=== PATIENT | female | born 1990 | race Caucasian/White ===

== ENCOUNTER 2023-07-13 13:08 | Outpatient (CLI) | payer SELFPAY ==
[2023-07-13] VITALS (9 sets, daily range): BP systolic 122–142; BP diastolic 64–92; PULSE 71–93; TEMP 36.3; O2SAT 98–100; BMI 40.8
--- OUTSIDE RECORDS SUMMARY | 2023-07-13 13:17 | XMS RPT_ITS | CCD ---
Author Name Unknown Address [address] [place] [address] Organization [facility] Care Team Providers Care Specimen Processor Name Role Phone ROBERTA YU MD Attending Unavailable ROBERTA YU MD Primary Care Unavailable ROBERTA YU MD Admitting Unavailable DR KATHY OTERO MD Primary Care Physician BRANDEN FUENTES., DR. KATHY Joseph Primary Care UnavailDEWEY Forde Attending Unavailable Petrilla DO, Deng F Primary Care Provider Petrilla DO, Deng F Primary Care Provider CAROLINE TROTTER Referring Unavailable PETRILLA, DENG Primary Care Unavailable PETRILLA, DENG Attending Unavailable PETRILLA, DENG Referring Unavailable PETRILLA, DENG Primary Care Unavailable PETRILLA, DENG Attending Unavailable PETRILLA, DENG Primary Care Unavailable PETRILLA, DENG Primary Care Unavailable CAROLINE TROTTER Attending Unavailable CAROLINE TROTTER Referring Unavailable PETRILLA, DENG Primary Care Unavailable PETRILLA, DENG Attending Unavailable PETRILLA, DENG Referring Unavailable PETRILLA, DENG Primary Care Unavailable Kathy Otero MD Primary Care Provider HUANG BEARD Attending Unavailable GANTA, KATHY Primary Care Unavailable GANTA, KATHY Primary Care Unavailable HUANG BEARD Referring Unavailable HUANG BEARD Attending Unavailable GANTA, KATHY Primary Care Unavailable GANTA, KATHY Primary Care Unavailable GANTA, KATHY Primary Care Unavailable YANA DUARTE Attending Unavailable GANTA, KATHY Primary Care Unavailable HUANG BEARD Referring Unavailable GANTA, KATHY Primary Care Unavailable OPAL DEY Referring Unavailable HUANG BEARD Attending Unavailable [facility] KATHY Primary Care Unavailable [facility] KATHY [facility] Unavailable OPAL EDY Attending Unavailable Allergies Allergy Classification Reported Allergen(s) Allergy Type Date of Onset Reaction(s) Facility (11 sources) Penicillins Drug Intolerance 2 Other [facility] (5 sources) Bee pollen; Translations: [BEE POLLEN] Drug Allergy 3 Swelling [facility] Work Phone: Medications Current Medications Medication Drug Class(es) Dates Sig (Normalized) Sig (Original) acetaminophen 325 mg / HYDROcodone bitartrate 5 mg oral tablet (1 source) Opioid Agonist Start: 07-23-2022 End: 07-26-2022 take 1 tablet by mouth every six hours as needed for pain [place] 325- 5 mg oral tablet Dose = 1 tab(s), Oral, q6h, PRN as needed for pain, X 3 day(s), # 12 tab(s), 0 Refill(s), Dentalgia, 100 Start Date: 07/23/22 Stop Date: 07/26/22 Status: Ordered clindamycin 150 mg oral capsule (1 source) Lincosamide Antibacterial Start: 07-23-2022 End: 08-02-2022 clindamycin 150 mg oral capsule Dose : 450 mg = 3 cap(s), Oral, TID, X 10 day(s), # 90 cap(s), 0 Refill(s), 08/02/22 13:50:00 EST, 100 Start Date: 07/23/22 Stop Date: 08/02/22 Status: Ordered ibuprofen 800 mg oral tablet (5 sources) Nonsteroidal Anti-inflammatory Drug Start: 11-08-2022 End: 11-15-2022 take 1 tablet by mouth three times daily ibuprofen 800 MG tablet Take 1 tablet (800 mg) by mouth 3 times daily for 7 days. 21 tablet 0 11/08/2022 11/15/2022 Active Magnesium Chloride (1 source) Start: 02-01-2016 magnesium chloride Start Date: 02/01/16 Status: Ordered omeprazole 20 mg oral tablet (3 sources) Proton Pump Inhibitor Start: 02-01-2016 take 1 dose by mouth once daily PriLOSEC OTC Dose : 20 mg =, Oral, qDay Start Date: 02/01/16 Status: Ordered Completed/Discontinued Medications Medication Drug Class(es) Dates Sig (Normalized) Sig (Original) aspirin 81 mg delayed release oral tablet (4 sources) Platelet Aggregation Inhibitor, Nonsteroidal Anti-inflammatory Drug Start: 04-29-2023 End: 04-29-2023 take 2 tablets by mouth once daily aspirin, enteric coated (ECOTRIN LOW STRENGTH) 81 mg EC tablet Take 2 tablets by mouth once daily. 60 tablet 5 04/29/2023 Active Problems Active Problems Problem Classification Problem Date Documented Date Episodic/Chronic Abdominal pain (3 sources) Right lower quadrant pain; Translations: [Right lower quadrant pain] Onset: 3 Episodic Conditions associated with dizziness or vertigo (6 sources) Dizziness; Translations: [Dizziness and giddiness] Onset: 3 Episodic Disorders of lipid metabolism (1 source) Hypercholesterolemia 02-01-2016 Chronic Disorders of teeth and jaw (1 source) Disorder of teeth AND/OR supporting structures; Translations: [Other specified disorders of teeth and supporting structures] Onset: 3 Episodic Esophageal disorders (1 source) Gastroesophageal reflux disease 02-01-2016 Chronic Immunizations and screening for infectious disease (3 sources) Patient encounter status; Translations: [Encounter for screening for human papillomavirus (HPV)] Onset: 3 04-29-2023 Episodic Menstrual disorders (4 sources) Primary oligomenorrhea; Translations: [Primary oligomenorrhea] Onset: 6 11-09-2015 Chronic Other complications of (6 sources) Obesity; Translations: [Obesity complicating , unspecified trimester] Onset: 3 04-18-2023 Chronic Other complications of (1 source) Obesity complicating , unspecified trimester; Translations: [Obesity in ] Onset: 3 Chronic Other complications of (7 sources) Elderly primigravida; Translations: [Supervision of elderly primigravida, unspecified trimester] Onset: 3 04-18-2023 Episodic Other complications of (1 source) with inconclusive viability, not applicable or unspecified; Translations: [ with inconclusive viability] 04-29-2023 Episodic Other complications of (1 source) Supervision of elderly primigravida, unspecified trimester; Translations: [Advanced maternal age, primigravida, antepartum] Onset: 3 Episodic Other endocrine disorders (1 source) Polycystic ovaries 02-01-2016 Chronic Other endocrine disorders (4 sources) Polycystic ovary syndrome; Translations: [Polycystic ovarian syndrome] Onset: 6 11-16-2015 Chronic Other nervous system disorders (6 sources) H/O: epilepsy; Translations: [Personal history of other diseases of the nervous system and sense organs] Onset: 3 04-18-2023 Episodic Other nervous system disorders (1 source) Personal history of other diseases of the nervous system and sense organs; Translations: [History of epilepsy] Onset: 3 Episodic Other and delivery including normal (4 sources) with uncertain dates; Translations: [Encounter for supervision of normal , unspecified, first trimester] Onset: 3 04-29-2023 Episodic Other screening for suspected conditions (not mental disorders or infectious disease) (1 source) Encounter for screening for malignant neoplasm of cervix; Translations: [Encounter for screening for malignant neoplasm of cervix] Onset: 3 Episodic Residual codes; unclassified (10 sources) History of clinical finding in subject; Translations: [Personal history of other specified conditions] Onset: 3 Episodic Residual codes; unclassified (2 sources) Personal history of other specified conditions; Translations: [Personal history of other specified conditions] Onset: 3 Episodic Residual codes; unclassified (1 source) 15 weeks gestation of ; Translations: [15 weeks gestation of ] Onset: 3 Episodic Screening and history of mental health and substance abuse codes (7 sources) H/O: depression; Translations: [Personal history of other mental and behavioral disorders] Onset: 3 04-18-2023 Episodic Past or Other Problems Problem Classification Problem Date Documented Da te Episodic/Chronic Diabetes mellitus without complication (8 sources) Impaired fasting glycemia; Translations: [Impaired fasting glucose] Onset: 11-16-2015 11-16-2015 Episodic Skin and subcutaneous tissue infections (4 sources) Abscess; Translations: [Cutaneous abscess, unspecified] Onset: 08-05-2015 08-05-2015 Episodic Results Test Name Value Interpretation Reference Range Facil ity Vital Signs Date Time Vital Sign Value Performing Clinician Facility 04-29-2023 10:12-0400 Body height 165.1 cm Huang Beard MD Work Phone: [facility] 04-29-2023 10:12-0400 Body weight 107.5 kg Huang Beard MD Work Phone: [facility] 04-29-2023 10:12-0400 Diastolic blood pressure 84 mm[Hg] Huang Beard MD Work Phone: [facility] 04-29-2023 10:12-0400 Systolic blood pressure 128 mm[Hg] Huang Beard MD Work Phone: [facility] 11-12-2022 08:46-0400 Body height 165.1 cm Deng Brady DO Work Phone: [facility] 11-12-2022 08:46-0400 Body mass index (BMI) [Ratio] 38.94 kg/m2 Deng Brady DO Work Phone: [facility] 11-12-2022 08:46-0400 Body temperature 96.8 [degF] Deng Brady DO Work Phone: [facility] 11-12-2022 08:46-0400 Body weight 106.14 kg Deng Brady DO Work Phone: [facility] 11-12-2022 08:46-0400 Diastolic blood pressure 86 mm[Hg] Deng Brady DO Work Phone: [facility] 11-12-2022 08:46-0400 Heart rate 88 /min Deng Brady DO Work Phone: [facility] 11-12-2022 08:46-0400 SaO2% (BldA) [Mass fraction] 98 % Deng Brady DO Work Phone: [facility] 11-12-2022 08:46-0400 Systolic blood pressure 122 mm[Hg] Deng Cabrala DO Work Phone: [facility] 11-08-2022 15:18-0400 Diastolic blood pressure 82 mm[Hg] Caroline Trotter MD Work Phone: [facility] 11-08-2022 15:18-0400 Heart rate 63 /min Caroline Trotter MD Work Phone: [facility] 11-08-2022 15:18-0400 Respiratory rate 14 /min Caroline Trotter MD Work Phone: [facility] 11-08-2022 15:18-0400 SaO2% (BldA) [Mass fraction] 99 % Caroline Trotter MD Work Phone: [facility] 11-08-2022 15:18-0400 Systolic blood pressure 122 mm[Hg] Caroline Trotter MD Work Phone: [facility] 11-08-2022 11:33-0400 Body height 162.6 cm Caroline Trotter MD Work Phone: [facility] 11-08-2022 11:33-0400 Body mass index (BMI) [Ratio] 37.76 kg/m2 Caroline Trotter MD Work Phone: [facility] 11-08-2022 11:33-0400 Body temperature 97.5 [degF] Caroline Trotter MD Work Phone: [facility] 11-08-2022 11:33-0400 Body weight 99.79 kg Caroline Trotter MD Work Phone: [facility] 07-23-2022 13:34-0500 Body temperature 98.96 [degF] DEWEY LEAVITT DO [facility] 07-23-2022 13:34-0500 Body weight 100 kg DEWEY LEAVITT DO [facility] 07-23-2022 13:34-0500 Diastolic Blood Pressure Non-Invasive 83 1 DEWEY LEAVITT DO [facility] 07-23-2022 13:34-0500 Heart rate 117 /min DEWEY LEAVITT DO [facility] 07-23-2022 13:34-0500 Respiratory rate 20 /min DEWEY LEAVITT DO [facility] 07-23-2022 13:34-0500 Systolic Blood Pressure Non-Invasive 126 1 DEWEY LEAVITT DO [facility] Encounters Encounter Date Encounter Type Care Provider Facility Start: 06-19-2023 End: 06-19-2023 ambulatory [facility] Facility:[facility] Start: 06-10-2023 End: 06-11-2023 ambulatory [facility] Facility:[facility] Start: 05-30-2023 End: 05-30-2023 ambulatory HUANG BEARD Facility:[facility] Start: 05-20-2023 End: 05-20-2023 ambulatory [facility] Facility:[facility] Start: 04-29-2023 End: 04-29-2023 ambulatory HUANG BEARD Facility:[facility] Start: 04-29-2023 End: 04-29-2023 Patient encounter procedure Huang Beard MD Work Phone: OB/Gynecology Procedures Date Procedure Procedure Detail Performing Clinician Start: 04-29-2023 Antibody screen HUANG BEARD Plan of Treatment Date Care Activity Detail Author Start: 2038 Zoster Vaccines (1 of 2) Zoste r Vaccines (1 of 2) [facility] Start: 08-10-2031 DTaP/Tdap/Td Vaccine s (2 - Td or Tdap) DTaP/Tdap/Td Vaccines (2 - Td or Tdap) [facility] Start: 08-10-2031 Urine microalbumin profile DTaP,Tdap,Td Vaccine (2 - Td or Tdap) [facility] Start: 12-26-2026 Lipid panel Lipid Panel [facility] Start: 04-29-2023 End: 07-29-2023 CARRIER SCREEN, STANDARD [facility] Work Phone: Immunizations Immunization Date Immunization Notes Care Provider Fa cility 08-10-2021 tetanus toxoid, redu kwabena diphtheria toxoid, and acellular pertussis vaccine, adsorbed Deng Brady DO Work Phone: [facility] 04-20-2016 influenza virus vacc ine, unspecified formulation Nurse Wstr Work Phone: [facility] Payers Date Payer Category Payer Private Health Insurance [id number] 2021 Private Health Insurance [id number] 1988 Unknown [id number] Social History Date Type Detail Facility Start: 04-18-2023 Tobacco smoking status Ex-smoker (finding) [facility] Sex Assigned At Sex [facility] Start: 12-25-2008 Tobacco smoking status NCIS Smokes tobacco daily [facility] Start: 12-25-2008 History of tobacco use Cigarette Smoker [facility] Start: 11-08-2022 End: 04-18-2023 Cigarettes smoked current (pack per day) - Reported 0.3 [facility] Start: 11-08-2022 End: 04-18-2023 Tobacco use and exposure Smokeless tobacco non-user [facility] Start: 11-08-2022 End: 04-29-2023 Alcohol intake Ex-drinker (finding) [facility] Start: 11-08-2022 History SDOH Alcohol Frequency 2 [facility] Start: 11-08-2022 History SDOH Alcohol Std Drinks 1 [facility] Start: 1990 Sex Assigned At Not on file [facility] Start: 10-29-2022 End: 12-05-2022 Exposure to SARS-CoV-2 (event) Not sure [facility] Start: 11-08-2022 End: 04-18-2023 Alcohol Use Disorder Identification Test - Consumption [AUDIT-C] [facility] How often to you hav e a drink containing alcohol? Monthly or less [facility] How many standard dr inks containing alcohol do you have on a typical day? 1 or 2 [facility] How often do you hav e 6 or more drinks on 1 occasion? Never [facility] Start: 11-09-2022 Gender identity Identifies as female gender (finding) [facility] History of tobacco use Current smoker [facility] Work Phone: National Score (1-10 0), lower number is lower risk 86 [facility] Start: 04-18-2023 Education 13 [facility] Start: 07-20-2015 Alcohol Comment Occasional [facility] Start: 02-16-2023 [facility] Goals Date Patient Goal Desired Activity /State Personal health goal Functional Status Date Assessment Result Facility 07-23-2022 Functional Status Standard Safet y ID band on, Call device within reach, Bed in low position, Wheels locked, Upper/Half-Length side-rails up, Bedside Cart Locked, Safety level maintained [facility] Mental Status Date Assessment Result Facility 07-23-2022 Mental Status Orientation Oriented x 4 [facility] Clinical Notes 05-10-2022 to 05-30-2023 Addendum Note - Huang Beard MD - 04/29/2023 5:02 PM EDTTelephone Encounter - Huang Beard MD - 04/29/2023 1:15 PM EDTTelephone Encounter - Jennifer Sears - 04/29/2023 11:01 AM EDT Note Date & Type Note Facility 05-30-2023 Note HNO ID: [id number] Author: Huang Beard MD Service: ? Author Type: Physician Type: Progress Notes Filed: 05/30/2023 8:55 AM Note Text: Sergio is a 33 year old who presents today for a colposcopy. The patient's last pap smear was ascus from March 2023. Patient has a history of abnormal pap: Yes. The patient has had prior treatment: LEEP. test: n/a UNIVERSAL PROTOCOL / SAFETY CHECKLIST Procedure to be Performed: colp w/ possible biopsies Sign In: A Moment of CARE was completed. Personnel directly involved with the procedure wore the appropriate PPE (Personal Protective Equipment). Patient/Surrogate Stated/Verified: PATIENT VERIFIED(optional for EMERGENT procedures): Patient name, Date of , Relevant allergies, and The intended procedure Time Out Communication: Intended patient and procedure match the source documents. Consent documented and matches the intended procedure. No implant(s) inserted. Sign Out: SIGN OUT (optional for EMERGENT procedures): No specimen collected. All instruments, equipment, possible retained foreign bodies accounted for. Post-procedure follow-up management communicated and Plan of Care Visit completed when applicable. Huang Beard M.D. PROCEDURE: EXTERNAL GENITALIA: Normal in appearance without lesions VAGINA: Normal in appearance without lesions CERVIX: Speculum placed in vagina and excellent visualization of cervix achieved. Cervix swabbed x 3 with 3% acetic acid solution. Cervix grossly normal. Squamocolumnar junction visualized. No acetowhite changes, punctations, mosaicism or atypical vasculature noted. BIOPSY: Not done. ECC: not done Procedure Summary: Patient tolerated procedure well and colposcopy was adequate. ASSESSMENT: ascus pap PLAN: Post-procedure instructions reviewed and written material given to the patient. f/u for routine screening after FHTs 156 Huang Beard MD [facility] 04-29-2023 Miscellaneous Notes Addended by: HUANG BEARD on: 04/29/2023 05:02 PM Modules accepted: Orders documented in this encounter [facility] 04-29-2023 Miscellaneous Notes done. Thanks. Huang Beard MD Please attach order for anatomy follow up visit. Thank you! Jennifer Sears documented in this encounter [facility] 04-29-2023 Note HNO ID: [id number] Author: Huang Beard MD Service: ? Author Type: Physician Type: Progress Notes Filed: 04/29/2023 10:36 AM Note Text: OB point of care ultrasound was performed. See imaging tab for details. Huang Beard MD INITIAL OB ASSESSMENT OB Provider: Huang Beard MD HPI: Sergio is a 32 year old White here to establish Obstetrical Care. Patient's last menstrual period was 02/02/2023 (exact date). from OB Dating Form. Cycles irregular was not preventing but had issues with infertility in pat Complaints: None OB History T0 L0 SAB0 IAB0 Ectopic0 Multiple0 Live Births0 Patient's Risk Screening for delivery: Have you had a prior prasad between 20w and 36w6d?: No MEDICAL/PSYCHOSOCIAL HISTORY: History of hemorrhage or bleeding concerns: No Thyroid Disease: No History of chronic hypertension: No History of pre-existing diabetes: No No results found for: ABORHD No weight on file for this encounter. History of abnormal pap: Yes Prior treatment for cervical dysplasia: no. History of STDs: chlamydia and PID Tobacco use: Yes-vapes Caffeine use: Yes 1 cup of coffee a day Drug use: No Alcohol use: No Multivitamin with Folic acid: Yes Lutheran or heritage: Noc Would refuse blood transfusion if medically necessary: No Are you currently employed? 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 I don't have enough money to pay my bills: Never Within the past 12 months, have you worried that your food would run out before you had money to buy more: Never In the past 12 months, has lack of reliable transportation kept you from going to medical appointments or work, or from keeping things needed for daily living: Never In the past 12 months, have you had any concerns about having a place to live, or about the condition or quality of your housing: Never Are there any cultural or spiritual needs we should be aware of: No Depression/Anxiety Screening: denies symptoms of depression. OB Depression and Anxiety Screening- This Encounter (since 04/17/2023) Over the past 2 weeks have you felt down, depressed, or hopeless? Negative Over the past two weeks, have you felt little interest or pleasure in doing things?? Negative Feeling nervous, anxious or on edge 0-Not at all Not being able to stop or control worrying 0-Not al all Anxiety Pre-Screening Total (If >/= 3 additional questions will be reviewed) 0 Genetic Screening: Partner present: No Patient verbalized knowledge of partner family health history: Yes Do you or your partner have any personal or family history of defects not previously discussed: No Do you have history of a complicated by anomaly, genetic condition, or demise: No ACOG Recommended Screening Screening for early gestational diabetes testing: Criteria for early testing requires elevated BMI plus one other risk factor: No weight on file for this encounter. (risk factor if > than 25 or 23 in Americans) Additional risk factors: First-degree relative with diabetes-sister3 She does meet ACOG criteria for early gestational DM screening. 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[employer] Gender: Male History of STDs: None PAST MEDICAL HISTORY PAST MEDICAL HISTORY Diagnosis Date Abnormal Pap smear of cervix > 10 years ago as of 2022 +HPV Bipolar affective (HCC) Chlamydia 2014 Depression/anxiety Epilepsy (HCC) Dx when she was 1, no longer takes medication hasn't had a seizure since she was 8 Infertility, female PCOS (polycystic ovarian syndrome) PID (acute pelvic inflammatory disease) 2014 Hospitalized at [facility] PTSD (post-traumatic stress disorder) Syphilis PAST SURGICAL HISTORY PAST SURGICAL HISTORY Procedure Laterality Date PAST SURGICAL HISTORY OF Right 0182-2022 3 armpit surgeries to remove fatty tissue PAST SURGICAL HISTORY OF Left 07/01/1989 left eye-lazy eye PAST SURGICAL HISTORY OF cysts removed from head VAGINOSCOPY CURRENT MEDICATIONS Current Outpatient Medications Medication Sig Dispense Refill VIT CALC,IRON,FOLIC ( #2 ORAL) Take by mouth (more content not included)... [facility] 04-29-2023 History of Present illness Narrative Images from the original note were not included. OB point of care ultrasound was performed. See imaging tab for details. Huang Beard MD INITIAL OB ASSESSMENT OB Provider: Huang Beard MD HPI: Sergio is a 32 year old White here to establish Obstetrical Care. Patient's last menstrual period was 02/02/2023 (exact date). from OB Dating Form. Cycles irregular was not preventing but had issues with infertility in pat Complaints: None OB History T0 L0 SAB0 IAB0 Ectopic0 Multiple0 Live Births0 Patient's Risk Screening for delivery: Have you had a prior prasad between 20w and 36w6d?: No MEDICAL/PSYCHOSOCIAL HISTORY: History of hemorrhage or bleeding concerns: No Thyroid Disease: No History of chronic hypertension: No History of pre-existing diabetes: No No results found for: ABORHD No weight on file for this encounter. History of abnormal pap: Yes Prior treatment for cervical dysplasia: no. History of STDs: chlamydia and PID Tobacco use: Yes-vapes Caffeine use: Yes 1 cup of coffee a day Drug use: No Alcohol use: No Multivitamin with Folic acid: Yes Lutheran or heritage: Noc Would refuse blood transfusion if medically necessary: No Are you currently employed? 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 I don't have enough money to pay my bills: Never Within the past 12 months, have you worried that your food would run out before you had money to buy more: Never In the past 12 months, has lack of reliable transportation kept you from going to medical appointments or work, or from keeping things needed for daily living: Never In the past 12 months, have you had any concerns about having a place to live, or about the condition or quality of your housing: Never Are there any cultural or spiritual needs we should be aware of: No Depression/Anxiety Screening: denies symptoms of depression. OB Depression and Anxiety Screening- This Encounter (since 04/17/2023) Over the past 2 weeks have you felt down, depressed, or hopeless? Negative Over the past two weeks, have you felt little interest or pleasure in doing things? Negative Feeling nervous, anxious or on edge 0-Not at all Not being able to stop or control worrying 0-Not al all Anxiety Pre-Screening Total (If >/= 3 additional questions will be reviewed) 0 Genetic Screening: Partner present: No Patient verbalized knowledge of partner family health history: Yes Do you or your partner have any personal or family history of defects not previously discussed: No Do you have history of a complicated by anomaly, genetic condition, or demise: No ACOG Recommended Screening Screening for early gestational diabetes testing: Criteria for early testing requires elevated BMI plus one other risk factor: No weight on file for this encounter. (risk factor if > than 25 or 23 in Americans) Additional risk factors: First-degree relative with diabetes-sister3 She does meet ACOG criteria for early gestational DM screening. 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[employer] Gender: Male History of STDs: None PAST MEDICAL HISTORY PAST MEDICAL HISTORY Diagnosis Date Abnormal Pap smear of cervix > 10 years ago as of 2022 +HPV Bipolar affective (HCC) Chlamydia 2014 Depression/anxiety Epilepsy (HCC) Dx when she was 1, no longer takes medication hasn't had a seizure since she was 8 Infertility, female PCOS (polycystic ovarian syndrome) PID (acute pelvic inflammatory disease) 2014 Hospitalized at [facility] PTSD (post-traumatic stress disorder) Syphilis PAST SURGICAL HISTORY PAST SURGICAL HISTORY Procedure Laterality Date PAST SURGICAL HISTORY OF Right [id number] 3 armpit surgeries to remove fatty tissue PAST SURGICAL HISTORY OF Left 07/01/1989 left eye-lazy eye PAST SURGICAL HISTORY OF cysts removed from head VAGINOSCOPY CURRENT MEDICATIONS Current Outpatient Medications Medication Sig Dispense Refill VIT CALC,IRON,FOLIC ( #2 ORAL) Take by mouth. medroxyPROGESTERone (PROVERA) 10 mg tablet Take 1 tablet by mouth once daily. 10 tablet 0 clomiPHENE (SEROPHENE) 50 mg tablet Take 2 tab po cycle days 3-7 10 tablet 0 mupirocin (BACTROBAN) 2 % ointment Apply 1 application to affected area twice daily. Location: nares 1 Tube 2 MAGNESIUM CARBONATE MISC (Patient not taking: Reported on 04/18/2023) omeprazole (PRILOSEC) 20 mg capsule Take 1 capsule by mouth twice daily. 60 capsule 1 Varenicline (CHANTIX STARTING MONTH BOX) 0.5 mg (11)- 1 mg (42) tablet Take 1 mg by mouth as directed. Take one 0.5mg tablet by mouth once daily for 3 days, then increase to one 0.5mg tablet twice daily for 3 days, then increase to one 1mg tablet twice daily. 1 Package 3 No current facility-administered medications for this visit. Allergies As of Date: 04/18/2023 Allergen Noted Reaction BEE POLLEN 04/18/2023 Swelling Fully Assessed 04/18/2023 Does patient have penicillin allergy: No- Pt states that PCN did NOT work when treating a cyst and they marked it as an allergy. But patient has taken PCN since then -denies allergy Reviewed above and agree. REVIEW OF SYSTEMS: GENERAL: Negative for: Fever or Chills HEENT: Negative for: Headache, Impaired Vision, Ringing in Ears, Nosebleeds NECK: Negative for: Swelling, Pain, Stiffness RESPIRATORY: Negative for: Cough, Shortness of breath, Wheezing GASTROINTESTINAL: Negative for: Heartburn, Constipation, Diarrhea, Blood in stool, Vomiting MUSCULOSKELETAL: Negative for: Muscle or joint pain, stiffness, Joint swelling NEUROLOGIC/PSYCHIATRIC: Negative for: Weakness, Paralysis, Numbness, Tingling, Tremor, Memory loss + anxiety and depression SKIN: Negative for: Rash, Itching GENITOURINARY: Negative for: vaginal itching, vaginal discharge, hematuria or dysuria PHYSICAL EXAM: BP 128/84 Ht 5' 5 (1.65m) Wt 237 lb (107.5kg) LMP 02/02/2023 BMI 39.44 kg/(m^2). GENERAL: pleasant in no apparent distress DERMATOLOGY: Normal, without lesions, non-icteric, and non-hirsute NECK: Supple, full range of motion, no adenopathy, and thyroid normal CHEST: Normal inspiratory effort BREAST: soft, non-tender, symmetric, no dominant mass, normal nipple-areolar complex, no lymphadenopathy, and no nipple discharge ABDOMEN: soft, non-tender, and no masses NEURO: alert and oriented x3,exam grossly non-focal PELVIS: External genitalia normal without lesions. Perineal body intact. No vaginal or cervical lesions. Cervix closed. Uterus 13 week size. No adnexal masses or tenderness. Clinical Pelvimetry: Pelvimetry clinically assessed as adequate Limited OB ultrasound exam: single intrauterine and positive cardiac activity OB Risk Screening: Completed, positive findings include: Patient will be less than 17 or greater than 34 at the time of Delivery SBIRT Sergio Akbar was given the 4P's screening tool. Sergio answered as follows: OB Opioid Screening - Last Recorded (since 08/02/2022) Did any of your parents have a problem with alcohol or other drug use? Yes Father-ETOH Does your partner have a problem with alcohol or other drug use? No In the past, have you had difficulties in your life because of alcohol or other drugs, including prescription medications? No In the past month have you drunk any alcohol or used other drugs? No Based on the screen and further questions, she is considered at Low risk due to:No past or current use. Positive reinforcement of current behavior. Huang Beard MD ASSESSMENT: 32 year old at 12w2d wks gestational age PLAN: 1) Patient oriented to practice. Patient given new OB orientation folder. Discussed nutrition, folic acid supplementation, dietary guidelines, exercise, smoking, alcohol, caffeine, and drug use. Discussed gestational weight gain guidelines. Discussed routine OB labs including STD/HIV. Discussed how to access Your guide to a health and the Feed In Worker. Discussed aneuploidy and carrier screening. Regarding aneuploidy screening, nuchal translucency/first trimester early anatomy ultrasound and NIPT were discussed. Regarding carrier screening, the myriad screen was discussed. The risks/benefits and limitations of NIPT/aneuploidy screening were reviewed including the potential for false negative and false positive results. We discussed the availability of professional-society guided carrier screening and reviewed the conditions screened and limitations of screening. The availability of genetic counseling was reviewed. Information on aneuploidy/carrier screening was provided. The patient chooses: Aneuploidy screening: chooses to proceed with NIPT (10 weeks) and Carrier screening: Accepts Discussed hemoglobin electrophoresis. Patient: Accepts Patient offered option of Virtual Visits. Patient unsure. May consider in future. 2) AMA: Aneuploidy screening reviewed 3) ASA candiodate tob cessation reviewed, now vaping, cutting back hgba1c for DM screening h/o bipolar- referal to counseling center to reestablish Medical Decision Making: Problems: Moderate: New problem with uncertain prognosis Data: Unique test(s) ordered: 3+ Risk: Moderate: Drug management Medical Decision Making Level: 4 - Moderate Follow up in 4 weeks or sooner prn. Huang Beard MD documented in this encounter [facility] 04-29-2023 Instructions Antionette Jack Ma - 04/29/2023 10:06 AM EDT Please select the following link to access the [facility] Your Guide to a Healthy . [email or web address] documented in this encounter [facility] 04-18-2023 Miscellaneous Notes DISTANCE HEALTH VISIT This Team Access Model visit is a phone encounter. It required patient-provider interaction for the medical decision making as documented below. I have communicated my name and active licensure. The patient's identity and physical location were verified at the time of this visit. Patient will be 33 years old on May 17. Advanced maternal age discussed. Noninvasive and invasive testing options discussed. Patient desires nuchal ultrasound and maternity 21 test. Contact information for [facility] given to patient to check on insurance coverage. Patient is obese. We will plan on early hemoglobin A1c.Pt has a history of anxiety/depression diagnosed in 2011. She states she was diagnosed with bipolar disorder in 2015 and PTSD in 2021. Patient states she was most recently treated by Dr. Forman in [place]. Has been to a counselor in the past and has access to counseling through her employment. She has been off medication for 1 year. She believes she is doing well off medication. Discussed increased risks of depression during and and importance of reporting the development or worsening of symptoms should they occur. Patient states she did have a suicidal attempt in 2006 when she consumed a bottle of Tylenol. She had a psychiatric hospitalization for 1 week at [facility] following that. She denies any suicidal thoughts for the past 10 years. Patient states she has a history of epilepsy that was diagnosed at age 1. She has been off medication since age 14. She states she has had no seizures since age 8. Patient considering genetic carrier screening testing. Contact information for [employer] given to patient to check on insurance coverage.Clare Velasquez RN documented in this encounter [facility] 04-18-2023 Note HNO ID: [id number] Author: Clare Velasquez RN Service: ? Author Type: ? Type: Progress Notes Filed: 04/18/2023 12:29 PM Note Text: INITIAL OB ASSESSMENT OB Provider: Clare Velasquez RN HPI: Sergio is a 32 year old White here to establish Obstetrical Care. Patient's last menstrual period was 02/02/2023 (exact date). from OB Dating Form. Cycles irregular was not preventing but had issues with infertility in pat Complaints: None OB History T0 L0 SAB0 IAB0 Ectopic0 Multiple0 Live Births0 Patient's Risk Screening for delivery: Have you had a prior prasad between 20w and 36w6d?: No MEDICAL/PSYCHOSOCIAL HISTORY: History of hemorrhage or bleeding concerns: No Thyroid Disease: No History of chronic hypertension: No History of pre-existing diabetes: No No results found for: ABORHD No weight on file for this encounter. History of abnormal pap: Yes Prior treatment for cervical dysplasia: no. History of STDs: chlamydia and PID Tobacco use: Yes-vapes Caffeine use: Yes 1 cup of coffee a day Drug use: No Alcohol use: No Multivitamin with Folic acid: Yes Lutheran or heritage: Noc Would refuse blood transfusion if medically necessary: No Are you currently employed? 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 I don't have enough money to pay my bills: Never Within the past 12 months, have you worried that your food would run out before you had money to buy more: Never In the past 12 months, has lack of reliable transportation kept you from going to medical appointments or work, or from keeping things needed for daily living: Never In the past 12 months, have you had any concerns about having a place to live, or about the condition or quality of your housing: Never Are there any cultural or spiritual needs we should be aware of: No Depression/Anxiety Screening: denies symptoms of depression. OB Depression and Anxiety Screening- This Encounter (since 04/17/2023) Over the past 2 weeks have you felt down, depressed, or hopeless? Negative Over the past two weeks, have you felt little interest or pleasure in doing things?? Negative Feeling nervous, anxious or on edge 0-Not at all Not being able to stop or control worrying 0-Not al all Anxiety Pre-Screening Total (If >/= 3 additional questions will be reviewed) 0 Genetic Screening: Partner present: No Patient verbalized knowledge of partner family health history: Yes Do you or your partner have any personal or family history of defects not previously discussed: No Do you have history of a complicated by anomaly, genetic condition, or demise: No ACOG Recommended Screening Screening for early gestational diabetes testing: Criteria for early testing requires elevated BMI plus one other risk factor: No weight on file for this encounter. (risk factor if > than 25 or 23 in Americans) Additional risk factors: First-degree relative with diabetes-sister3 She does meet ACOG criteria for early gestational DM screening. Screening for low dose aspirin use for the prevention of pre-eclampsia: Low dose aspirin should be considered if the patient has one high or two moderate risk factors: High risk factors: None Moderate risk ractors: Nulliparity, Obesity (body mass index greater than 30), and Age 35 years or older She does meet criteria for low dose ASA Marital Status: Partner: Alexandre Akbar Name: Alexandre Akbar Age: 28 Occupation: Pediatric [employer] Gender: Male History of STDs: None PAST MEDICAL HISTORY Diagnosis Date Abnormal Pap smear of cervix > 10 years ago as of 2022 +HPV Bipolar affective (HCC) Chlamydia 2014 Depression/anxiety Epilepsy (HCC) Dx when she was 1, no longer takes medication hasn't had a seizure since she was 8 Infertility, female PCOS (polycystic ovarian syndrome) PID (acute pelvic inflammatory disease) 2014 Hospitalized at [facility] PTSD (post-traumatic stress disorder) Syphilis PAST SURGICAL HISTORY Procedure Laterality Date PAST SURGICAL HISTORY OF Right [id number] 3 armpit surgeries to remove fatty tissue PAST SURGICAL HISTORY OF Left 07/01/1989 left eye-lazy eye PAST SURGICAL HISTORY OF cysts removed from head VAGINOSCOPY Current Outpatient Medications Medication Sig Dispense Refill VIT CALC,IRON,FOLIC ( #2 ORAL) Take by mouth. medroxyPROGESTERone (PROVERA) 10 mg tablet Take 1 tablet by mouth once daily. 10 tablet 0 clomiPHENE (SEROPHENE) 50 mg tablet Take 2 tab po cycle days 3-7 10 tablet 0 mupiroci (more content not included)... [facility] 04-18-2023 History of Present illness Narrative INITIAL OB ASSESSMENT OB Provider: Clare Velasquez RN HPI: Sergio is a 32 year old White here to establish Obstetrical Care. Patient's last menstrual period was 02/02/2023 (exact date). from OB Dating Form. Cycles irregular was not preventing but had issues with infertility in pat Complaints: None OB History T0 L0 SAB0 IAB0 Ectopic0 Multiple0 Live Births0 Patient's Risk Screening for delivery: Have you had a prior prasad between 20w and 36w6d?: No MEDICAL/PSYCHOSOCIAL HISTORY: History of hemorrhage or bleeding concerns: No Thyroid Disease: No History of chronic hypertension: No History of pre-existing diabetes: No No results found for: ABORHD No weight on file for this encounter. History of abnormal pap: Yes Prior treatment for cervical dysplasia: no. History of STDs: chlamydia and PID Tobacco use: Yes-vapes Caffeine use: Yes 1 cup of coffee a day Drug use: No Alcohol use: No Multivitamin with Folic acid: Yes Lutheran or heritage: Noc Would refuse blood transfusion if medically necessary: No Are you currently employed? 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 I don't have enough money to pay my bills: Never Within the past 12 months, have you worried that your food would run out before you had money to buy more: Never In the past 12 months, has lack of reliable transportation kept you from going to medical appointments or work, or from keeping things needed for daily living: Never In the past 12 months, have you had any concerns about having a place to live, or about the condition or quality of your housing: Never Are there any cultural or spiritual needs we should be aware of: No Depression/Anxiety Screening: denies symptoms of depression. OB Depression and Anxiety Screening- This Encounter (since 04/17/2023) Over the past 2 weeks have you felt down, depressed, or hopeless? Negative Over the past two weeks, have you felt little interest or pleasure in doing things? Negative Feeling nervous, anxious or on edge 0-Not at all Not being able to stop or control worrying 0-Not al all Anxiety Pre-Screening Total (If >/= 3 additional questions will be reviewed) 0 Genetic Screening: Partner present: No Patient verbalized knowledge of partner family health history: Yes Do you or your partner have any personal or family history of defects not previously discussed: No Do you have history of a complicated by anomaly, genetic condition, or demise: No ACOG Recommended Screening Screening for early gestational diabetes testing: Criteria for early testing requires elevated BMI plus one other risk factor: No weight on file for this encounter. (risk factor if > than 25 or 23 in Americans) Additional risk factors: First-degree relative with diabetes-sister3 She does meet ACOG criteria for early gestational DM screening. 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[employer] Gender: Male History of STDs: None PAST MEDICAL HISTORY Diagnosis Date Abnormal Pap smear of cervix > 10 years ago as of 2022 +HPV Bipolar affective (HCC) Chlamydia 2014 Depression/anxiety Epilepsy (HCC) Dx when she was 1, no longer takes medication hasn't had a seizure since she was 8 Infertility, female PCOS (polycystic ovarian syndrome) PID (acute pelvic inflammatory disease) 2014 Hospitalized at [facility] PTSD (post-traumatic stress disorder) Syphilis PAST SURGICAL HISTORY Procedure Laterality Date PAST SURGICAL HISTORY OF Right [phone] 3 armpit surgeries to remove fatty tissue PAST SURGICAL HISTORY OF Left 07/01/1989 left eye-lazy eye PAST SURGICAL HISTORY OF cysts removed from head VAGINOSCOPY Current Outpatient Medications Medication Sig Dispense Refill VIT CALC,IRON,FOLIC ( #2 ORAL) Take by mouth. medroxyPROGESTERone (PROVERA) 10 mg tablet Take 1 tablet by mouth once daily. 10 tablet 0 clomiPHENE (SEROPHENE) 50 mg tablet Take 2 tab po cycle days 3-7 10 tablet 0 mupirocin (BACTROBAN) 2 % ointment Apply 1 application to affected area twice daily. Location: nares 1 Tube 2 MAGNESIUM CARBONATE MISC (Patient not taking: Reported on 04/18/2023) omeprazole (PRILOSEC) 20 mg capsule Take 1 capsule by mouth twice daily. 60 capsule 1 Varenicline (CHANTIX STARTING MONTH BOX) 0.5 mg (11)- 1 mg (42) tablet Take 1 mg by mouth as directed. Take one 0.5mg tablet by mouth once daily for 3 days, then increase to one 0.5mg tablet twice daily for 3 days, then increase to one 1mg tablet twice daily. 1 Package 3 No current facility-administered medications for this visit. Allergies As of Date: 04/18/2023 Allergen Noted Reaction BEE POLLEN 04/18/2023 Swelling Fully Assessed 04/18/2023 Does patient have penicillin allergy: No- Pt states that PCN did NOT work when treating a cyst and they marked it as an allergy. But patient has taken PCN since then -denies allergy documented in this encounter [facility] 12-13-2022 Note Referral pended for dx and doctor's signature [facility] 12-05-2022 Note OUTPATIENT EEG/VIDEO REPORT DEMOGRAPHICS PATIENT: SERGIO AKBAR DATE OF SERVICE: December 05, 2022 DATE OF : [birth year] AGE: 32 GENDER: Female HANDEDNESS: RIGHT DICTATING PHYSICIAN: DR. Nick REFERRING PHYSICIAN: Dr. Brady EEG PARAMETER EEG TEST ?: [id number] EEG TEST TYPE: Outpatient 32-MINUTE EEG RECORDING. (7:52 AM-8:26 AM) BRIM CUTTER: TAC 21 Channel EEG using silver/silver chloride electrodes for data acquisition. EEG electrodes were positioned using the International 10-20 system. Montages used for EEG Data Analysis are I. Referential. II. Transverse. III. Bipolar. CLINICAL DATA EEG CLINICAL INDICATION: Seizure evaluation. NEUROLOGICAL HISTORY/DIAGNOSIS: 32-year-old right-hand woman undergoing EEG for seizures. History of childhood epilepsy and recent complaints of lightheadedness without loss of consciousness. MEDICAL HISTORY: No information available. CURRENT PERTINENT MEDICATIONS: No information available. MENTAL STATUS PRESENTATION: Patient had 5 hours of sleep last night. MRI pending. EEG INTERPRETATION BACKGROUND EEG ACTIVITY Frequency: Alpha rhythm; 11-12 Hz Frequency variability (CAPE): Absent Amplitude: Normal >20 ?V Amplitude variability: Not significant Occipitally prominent: Yes Frontally prominent: No A-P gradient with posterior rhythm dominance: Present Continuity of background rhythm: Continuous Rhythmicity: Present Synchronicity: Present Amplitude symmetry: Symmetric State changes: Present with normal drowsy sleep transients. Evidence of skull defect with breach rhythm: Absent NORMAL EEG VARIANT WAVES: Absent ABNORMAL WAVES: Absent INTERICTAL EPILEPTIFORM DISCHARGE: Absent ACTIVATION PROCEDURES EYE OPENING elicits a transient bilateral frontotemporal attenuation of the EEG activity. HYPERVENTILATION produces no change in the EEG background activity. INTERMITTENT PHOTIC STIMULATION does elicit occipital photic driving responses from 13 Hz to 23 Hz. ARTIFACTS: Significant: Bilateral frontal muscle artifact. EKG: Normal sinus rhythm. EEG-NEUROPHYSIOLOGICAL IMPRESSION/ EEG-CLINICAL CORRELATION This is a NORMAL OUTPATIENT AWAKE AND DROWSY EEG. There are no abnormal rhythms. There are no abnormal wave-complexes. There are no focal/lateralizing abnormalities. There are no interictal epileptiform discharges and no clinical seizures are seen on video. This normal EEG recording does not exclude the diagnosis of epilepsy. If epilepsy is of clinical concern, a prolonged 24-hour sleep-deprived EEG in the EMU may be helpful. DARWIN Nick MD NEUROLOGIST [phone] [facility] 12-05-2022 Procedure note Associated Ord er(s): EEG Images from the original note were not included. OUTPATIENT EEG/VIDEO REPORT DEMOGRAPHICS PATIENT: SERGIO AKBAR DATE OF SERVICE: December 05, 2022 DATE OF : [birth year] AGE: 32 GENDER: Female HANDEDNESS: RIGHT DICTATING PHYSICIAN: DR. Nick REFERRING PHYSICIAN: Dr. Brady EEG PARAMETER EEG TEST ?: [id number] EEG TEST TYPE: Outpatient 32-MINUTE EEG RECORDING. (7:52 AM-8:26 AM) BRIM CUTTER: TAC 21 Channel EEG using silver/silver chloride electrodes for data acquisition. EEG electrodes were positioned using the International 10-20 system. Montages used for EEG Data Analysis are I. Referential. II. Transverse. III. Bipolar. CLINICAL DATA EEG CLINICAL INDICATION: Seizure evaluation. NEUROLOGICAL HISTORY/DIAGNOSIS: 32-year-old right-hand woman undergoing EEG for seizures. History of childhood epilepsy and recent complaints of lightheadedness without loss of consciousness. MEDICAL HISTORY: No information available. CURRENT PERTINENT MEDICATIONS: No information available. MENTAL STATUS PRESENTATION: Patient had 5 hours of sleep last night. MRI pending. EEG INTERPRETATION BACKGROUND EEG ACTIVITY Frequency: Alpha rhythm; 11-12 Hz Frequency variability (CAPE): Absent Amplitude: Normal >20 V Amplitude variability: Not significant Occipitally prominent: Yes Frontally prominent: No A-P gradient with posterior rhythm dominance: Present Continuity of background rhythm: Continuous Rhythmicity: Present Synchronicity: Present Amplitude symmetry: Symmetric State changes: Present with normal drowsy sleep transients. Evidence of skull defect with breach rhythm: Absent NORMAL EEG VARIANT WAVES: Absent ABNORMAL WAVES: Absent INTERICTAL EPILEPTIFORM DISCHARGE: Absent ACTIVATION PROCEDURES EYE OPENING elicits a transient bilateral frontotemporal attenuation of the EEG activity. HYPERVENTILATION produces no change in the EEG background activity. INTERMITTENT PHOTIC STIMULATION does elicit occipital photic driving responses from 13 Hz to 23 Hz. ARTIFACTS: Significant: Bilateral frontal muscle artifact. EKG: Normal sinus rhythm. EEG-NEUROPHYSIOLOGICAL IMPRESSION/ EEG-CLINICAL CORRELATION This is a NORMAL OUTPATIENT AWAKE AND DROWSY EEG. There are no abnormal rhythms. There are no abnormal wave-complexes. There are no focal/lateralizing abnormalities. There are no interictal epileptiform discharges and no clinical seizures are seen on video. This normal EEG recording does not exclude the diagnosis of epilepsy. If epilepsy is of clinical concern, a prolonged 24-hour sleep-deprived EEG in the EMU may be helpful. DARWIN Nick MD NEUROLOGIST [phone] [employer] Work Phone: 12-05-2022 Procedure note Associated Ord er(s): EEG Images from the original note were not included. OUTPATIENT EEG/VIDEO REPORT DEMOGRAPHICS PATIENT: SERGIO AKBAR DATE OF SERVICE: December 05, 2022 DATE OF : [birth year] AGE: 32 GENDER: Female HANDEDNESS: RIGHT DICTATING PHYSICIAN: DR. Nick REFERRING PHYSICIAN: Dr. Brady EEG PARAMETER EEG TEST ?: [id number] EEG TEST TYPE: Outpatient 32-MINUTE EEG RECORDING. (7:52 AM-8:26 AM) BRIM CUTTER: TAC 21 Channel EEG using silver/silver chloride electrodes for data acquisition. EEG electrodes were positioned using the International 10-20 system. Montages used for EEG Data Analysis are I. Referential. II. Transverse. III. Bipolar. CLINICAL DATA EEG CLINICAL INDICATION: Seizure evaluation. NEUROLOGICAL HISTORY/DIAGNOSIS: 32-year-old right-hand woman undergoing EEG for seizures. History of childhood epilepsy and recent complaints of lightheadedness without loss of consciousness. MEDICAL HISTORY: No information available. CURRENT PERTINENT MEDICATIONS: No information available. MENTAL STATUS PRESENTATION: Patient had 5 hours of sleep last night. MRI pending. EEG INTERPRETATION BACKGROUND EEG ACTIVITY Frequency: Alpha rhythm; 11-12 Hz Frequency variability (CAPE): Absent Amplitude: Normal >20 V Amplitude variability: Not significant Occipitally prominent: Yes Frontally prominent: No A-P gradient with posterior rhythm dominance: Present Continuity of background rhythm: Continuous Rhythmicity: Present Synchronicity: Present Amplitude symmetry: Symmetric State changes: Present with normal drowsy sleep transients. Evidence of skull defect with breach rhythm: Absent NORMAL EEG VARIANT WAVES: Absent ABNORMAL WAVES: Absent INTERICTAL EPILEPTIFORM DISCHARGE: Absent ACTIVATION PROCEDURES EYE OPENING elicits a transient bilateral frontotemporal attenuation of the EEG activity. HYPERVENTILATION produces no change in the EEG background activity. INTERMITTENT PHOTIC STIMULATION does elicit occipital photic driving responses from 13 Hz to 23 Hz. ARTIFACTS: Significant: Bilateral frontal muscle artifact. EKG: Normal sinus rhythm. EEG-NEUROPHYSIOLOGICAL IMPRESSION/ EEG-CLINICAL CORRELATION This is a NORMAL OUTPATIENT AWAKE AND DROWSY EEG. There are no abnormal rhythms. There are no abnormal wave-complexes. There are no focal/lateralizing abnormalities. There are no interictal epileptiform discharges and no clinical seizures are seen on video. This normal EEG recording does not exclude the diagnosis of epilepsy. If epilepsy is of clinical concern, a prolonged 24-hour sleep-deprived EEG in the EMU may be helpful. DARWIN Nick MD NEUROLOGIST [phone] documented in this encounter [facility] 11-12-2022 Telephone encounter Note Orders pended for doctor's signature [facility] 11-12-2022 Miscellaneous Notes Orders pended for doctor's signature documented in this encounter [facility] 11-12-2022 History of Present illness Narrative Yes [facility] [address] [place] [address] Visit type: Established Patient Reason for Visit: Dizziness (For about a week) Assessment / Plan: Sergio was seen today for dizziness. Diagnoses and all orders for this visit: Dizziness (Primary) - ECG 12 lead; Future History of seizure Comments: Recurrent symptomatology. MRI and EEG See above work-up Subjective: Patient ID: Sergio Akbar is a 32 y.o. female. HPI patient presents concerned about recurrent seizures. Has had 1 week of feeling off and dizzy. Similar to what she felt as a teenager. Has been off Tegretol for about 19 years. No recent headache or diplopia or fever. Denies unilateral numbness of the face arm or legs. No grand mal activity although she had that 20 years ago. Recent right-sided abdominal pain resolved. Lab CAT scan and ultrasound abdomen reviewed from 4 days ago. No symptomatology presently. Review of Systems has been also off for a while. No recent change in cranial nerves. No gagging. No falls or injury. Denies any change in stress. Enjoys her job. Her is well. Denies earache or sore throat. No purulent phlegm or rhinorrhea. No change in speech or vision. No incontinence. Denies cardiac or pulmonary symptoms of palpitation chest pain cough or wheezing. Resolved abdominal pain. Menses are regular. History of PCOS. Today's EKG normal. Recent lab unremarkable. Allergies Allergen Reactions Penicillins Other Boils on legs Current Outpatient Medications on File Prior to Visit Medication Sig Dispense Refill ibuprofen 800 MG tablet Take 1 tablet (800 mg) by mouth 3 times daily for 7 days. 21 tablet 0 No current facility-administered medications on file prior to visit. Patient Active Problem List Diagnosis History of seizure Social History Tobacco Use Smoking status: Every Day Packs/day: 0.25 Types: Cigarettes Start date: 12/25/2008 Smokeless tobacco: Never Substance Use Topics Alcohol use: Not Currently Past Surgical History: Procedure Laterality Date AXILLARY SURGERY Right lipoma SCALP LESION REMOVAL W/ FLAP AND SKIN GRAFT scalp lesions STRABISMUS SURGERY Left 1989 Family History Problem Relation Name Age of Onset Hypertension Mother Viola alive in 50s Lung cancer Father age 68, smoker and drinker Hypertension Sister 1/2 anxiety , substance , hepatitis Substance Abuse Sister Diabetes Mother's Sister Objective: BP 122/86 Pulse 88 Temp 36 C (96.8 F) (Temporal) Ht 5' 5 (1.651 m) Wt 234 lb (106 kg) SpO2 98% BMI 38.94 kg/m Physical Exam her exam appears well. Alert and oriented. Not acutely ill in appearance. Sharp funduscopic exam. Pupils equal. Extraocular muscles are intact. All cranial nerves are normal. No carotid bruits or thyroid masses. Heart is regular without gallops murmurs or ectopy. Lungs are clear. Abdomen soft obese without pain hepatosplenomegaly masses or bruits. Extremities are pink without edema. No Emma's. No Babinski. Or clonus. All cerebellar test are normal. documented in this encounter [facility] 11-12-2022 Instructions Deng Brady DO - 11/12/2022 9:00 AM EDT -No driving for now. Await MRI and an EEG. documented in this encounter [facility] 11-08-2022 Hospital Discharge instructions Caroline Trotter MD - 11/08/2022 3:33 PM EDT Schedule follow-up appointment Dr. Brady, take medication as prescribed, return to the ER if worsening abdominal pain fever vomiting bleeding or any other abnormalities. The following attachments cannot be sent through Care Everywhere.Abdominal Pain, Adult ED (Tongan)documented in this encounter [facility] 11-08-2022 Emergency department Note EMERGENCY DEPARTMENT ENCOUNTER Pt Name: Sergio Akbar Birthdate 1990 Date of evaluation: 11/08/2022 ED Provider: CAROLINE TROTTER MD CHIEF COMPLAINT Chief Complaint Patient presents with Abdominal Pain Dizziness HISTORY OF PRESENT ILLNESS (Location/Symptom, Timing/Onset, Context/Setting, Quality, Duration, Modifying Factors, Severity) Note limiting factors. HPI Sergio Akbar is a 32 y.o. female who presents to the emergency department for evaluation of right mid to lower quadrant abdominal pain and feeling lightheaded. The patient for the last week has not felt right she said she has been a little nauseated and lightheaded but since last night she started complaining of infraumbilical and right lower abdominal pain. No fever chills sweats, no nausea or vomiting no GI bleeding no diarrhea. No urinary frequency urgency burning insuring no flank pain no hematuria. No vaginal bleeding or discharge LMP 3 weeks ago on time and normal she offers with a history of polycystic ovary disease no control she has had several miscarriages no live births. Nursing Notes were reviewed. REVIEW OF SYSTEMS Review of Systems REVIEW OF SYSTEMS: Positives and pertinent negatives noted in my history PAST MEDICAL HISTORY Past Medical History: Diagnosis Date Anxiety Bipolar disorder (HCC) Depression Epilepsy (HCC) PCOS (polycystic ovarian syndrome) SURGICAL HISTORY Past Surgical History: Procedure Laterality Date AXILLARY SURGERY Right CYST REMOVAL x2 EYE SURGERY Left 1989 CURRENT MEDICATIONS Previous Medications No medications on file ALLERGIES Penicillins FAMILY HISTORY Family History Problem Relation Name Age of Onset Cancer Father lung Diabetes Mother's Sister Hypertension Sister Hypertension Mother SOCIAL HISTORY Social History Socioeconomic History Marital status: Tobacco Use Smoking status: Every Day Packs/day: 0.25 Types: Cigarettes Start date: 12/25/2008 Smokeless tobacco: Never Substance and Sexual Activity Alcohol use: Not Currently Drug use: Yes Types: Marijuana SCREENINGS PHYSICAL EXAM ED Triage Vitals [11/08/22 1133] Temp Heart Rate Resp BP 36.4 C (97.5 F) 75 18 131/89 SpO2 Temp Source Heart Rate Source Patient Position 97 % Oral Monitor Sitting BP Location FiO2 (%) Right arm -- Physical Exam CONSTITUTIONAL: Vital signs are charted, patient is awake alert oriented and in no severe acute distress, well-hydrated, normal appearance GEN. APPEARANCE: Well-developed well-nourished individual in no severe acute distress, vital signs are charted. LUNGS: Breath sounds are equal, clear to auscultation, no wheeze retractions or cyanosis and no crackles present. HEART: Regular rate and rhythm no murmur or thrill or rub, strong heart tones BACK: No thoracic lumbar or flank pain. ABDOMEN: Soft but some generalized tenderness in the infraumbilical region somewhat suprapubic and towards the right lower quadrant but no guarding rebound rigidity or palpable mass. NEURO: Cranial nerves II through XII are intact, motor and sensory exams are intact and normal, muscle strength is 5/5, deep tendon reflexes are 2/4, sensation to touch and pain is intact and normal, no ataxia, normal gait, no focal findings noted. PSYCH: Awake alert oriented, normal mood and affect. DIAGNOSTIC RESULTS RADIOLOGY per my interpretation: CT scan interpreted by me I do not see any inflammatory findings in the right lower quadrant, I do not see any signs of suggest obstruction either. Interpretation per the Radiologist below, if available at the time of this note: US pelvis transvaginal Final Result Unremarkable pelvic ultrasound. Report Dictated on Workstation: [email or web address] Electronically Signed By: Rafa Woo Electronically Signed Date/Time: 11/08/2022 3:[address] abdomen pelvis w contrast Final Result The gallbladder is contracted. No acute abdominal or pelvic process. No CT findings to account for the patient's current symptomatology. Report Dictated on Electronically Signed By: Yann Treadwell Electronically Signed Date/Time: 11/08/2022 1:43 PM EDT ED BEDSIDE ULTRASOUND: Performed by ED Physician - none LABS: Labs Reviewed CBC WITH AUTO DIFFERENTIAL - Abnormal Result Value Auto WBC 7.0 RBC 4.61 Hemoglobin 14.1 Hematocrit 40.4 MCV 87.6 MCH 30.6 MCHC 34.9 RDW 12.2 Platelets 361 MPV 9.8 Neutrophils Relative 53.7 Lymphocytes Relative 33.2 Monocytes Relative 7.6 Eosinophils Relative 4.7 Basophils Relative 0.7 Immature Grans % 0.1 (*) Neutrophils Absolute 3.7 Lymphocytes Absolute 2.3 Monocytes Absolute 0.5 Eosinophils Absolute 0.3 Basophils Absolute 0.1 Immature Grans Absolute 0.0 COMPREHENSIVE METABOLIC PANEL - Abnormal SODIUM 138 POTASSIUM 3.8 CHLORIDE 105 CARBON DIOXIDE 29 ANION GAP 4 UREA NITROGEN 15 CREATININE 0.75 GLUCOSE 125 (*) CALCIUM 9.1 AST (SGOT) 34 ALT 19 ALKALINE PHOSPHATASE 65 ALBUMIN 4.1 BILIRUBIN, TOTAL 0.3 TOTAL PROTEIN 6.9 eGFR >90.0 COMPLETE URINALYSIS - Abnormal Color, Urine Yellow Clarity, Urine Extra Turbid (*) pH, Urine 8.0 Leukocytes, Urine Negative Nitrite, Urine Negative Protein, Urine Negative Glucose, Urine Normal Bilirubin, Urine Negative Ketones, Urine Negative Urobilinogen, Urine Normal Blood, Urine Negative SPECIFIC GRAVITY OF URINE (NUMERIC) 1.013 LIPASE - Normal LIPASE 106 COMPLETE URINALYSIS WITH REFLEX TO CULTURE Narrative: The following orders were created for panel order Urinalysis Complete with reflex to Culture. Procedure Abnormality Status --------- ------ Complete Urinalysis[[id number]] Abnormal Final result Please view results for these tests on the individual orders. HCG QUALITATIVE URINE HCG,URINE QUAL Negative Narrative: is the most common reason for HCG in urine, although choriocarcinoma, hydatidiform mole, and certain nontrophoblastic malignancies also result in detectable urinary HCG levels. Sensitivity = 20mIU/mL. All other labs were within normal range or not returned as of this dictation. MDM/EMERGENCY DEPARTMENT COURSE: Vitals: Vitals: 11/08/22 1133 11/08/22 1518 BP: 131/89 122/82 BP Location: Right arm Right arm Patient Position: Sitting Sitting Pulse: 75 63 Resp: 18 14 Temp: 36.4 C (97.5 F) TempSrc: Oral SpO2: 97% 99% Weight: 99.8 kg (220 lb) Height: 1.626 m (5' 4 ) Medications sodium chloride 0.9 % bolus 1,000 mL (0 mL IntraVENous Stopped 11/08/22 1316) MEDICAL DECISION MAKING Clinically she is not in severe acute distress she is not febrile septic toxic and does not have signs to suggest an acute surgical abdomen at this point. Differential diagnosis does include abdominal pain from GI etiology including possible appendectomy versus obstruction or other GI issues, but also issues given her history of polycystic ovary disease as well. Less likely urinary tract infection. I ordered CBC chemistries laboratory studies urinalysis and we started off with a CT scan of the abdomen pelvis. Progress note: Patient had returned from CAT scan, her laboratory studies returned these were reviewed by myself with a normal white count of 7 unremarkable hemoglobin of 14.1 chemistries unremarkable renal functions normal LFTs normal as well 2. Her urine has no signs of clear-cut infection and her test was negative. CT scan did not show any evidence on my interpretation of an acute appendicitis or obstruction or other clear-cut etiology of her abdominal discomfort. Because of that I went ahead and ordered a pelvic ultrasound with her history of poly ovary cystic disease. External note #1 reviewed by myself family medicine practice office visit 01/24/2022 confirms her polycystic ovary disease and PROJECT DEVELOPMENT MANAGER referral. Reexam: Patient is resting comfortably not in severe distress, the ultrasound was reviewed by the radiologist please see their note there was no signs of significant abnormalities and no torsion noted either. Her white blood cell count was normal at 7 her chemistries and electrolytes are unremarkable renal functions are normal urine had no signs to suggest UTI and as noted her test was negative. Plan will be discharged for outpatient follow-up with Dr. Brady, Motrin 800 mg prescription strength will be provided #30 for pain, she is to return to the ER if there is worsening problems including pain fever bleeding vomiting urinary symptoms or any new or unusual symptoms. REVAL: CONSULTS: None FINAL IMPRESSION 1. Right lower quadrant abdominal pain DISPOSITION/PLAN Discharge outpatient follow-up PATIENT REFERRED TO: Deng Brady, [address] [place] [id number] Call in 2 days DISCHARGE MEDICATIONS: New Prescriptions IBUPROFEN 800 MG TABLET Take 1 tablet (800 mg) by mouth 3 times daily for 7 days. (Comment: Please note this report has been produced using speech recognition software and may contain errors related to that system including errors in grammar, punctuation, and spelling, as well as words and phrases that may be inappropriate. If there are any questions or concerns please feel free to contact the dictating provider for clarification.) CAROLINE TROTTER MD (electronically signed) Emergency Medicine Provider Caroline Trotter MD 11/08/22 1534 Patient is here for abdominal pain. Pain started last night. Pain is 2/10 and is described as stabbing and cramping. Pain is located mid, lower and upper abdomen and in her back. She denies digestive issues or urinary issues since this started. She did have an acid reflux flare up the week prior and vomited x1. She has history of polycystic ovary disease and does not think this is what is causing her issues. She also complains of lightheadedness. This started 1 week ago. She has a history of epilepsy and has been seizure free for 20 years. When she feels dizzy she sits down. Vitals WNL. Call light within reach. documented in this encounter [facility] 11-08-2022 Emergency department Triage note Patient is here for abdominal pain. Pain started last night. Pain is 2/10 and is described as stabbing and cramping. Pain is located mid, lower and upper abdomen and in her back. She denies digestive issues or urinary issues since this started. She did have an acid reflux flare up the week prior and vomited x1. She has history of polycystic ovary disease and does not think this is what is causing her issues. She also complains of lightheadedness. This started 1 week ago. She has a history of epilepsy and has been seizure free for 20 years. When she feels dizzy she sits down. Vitals WNL. Call light within reach. [facility] 11-08-2022 Physician Emergency department Note EMERGENCY DEPARTMENT ENCOUNTER Pt Name: Sergio Akbar Birthdate 1990 Date of evaluation: 11/08/2022 ED Provider: CAROLINE TROTTER MD CHIEF COMPLAINT Chief Complaint Patient presents with Abdominal Pain Dizziness HISTORY OF PRESENT ILLNESS (Location/Symptom, Timing/Onset, Context/Setting, Quality, Duration, Modifying Factors, Severity) Note limiting factors. HPI Sergio Akbar is a 32 y.o. female who presents to the emergency department for evaluation of right mid to lower quadrant abdominal pain and feeling lightheaded. The patient for the last week has not felt right she said she has been a little nauseated and lightheaded but since last night she started complaining of infraumbilical and right lower abdominal pain. No fever chills sweats, no nausea or vomiting no GI bleeding no diarrhea. No urinary frequency urgency burning insuring no flank pain no hematuria. No vaginal bleeding or discharge LMP 3 weeks ago on time and normal she offers with a history of polycystic ovary disease no control she has had several miscarriages no live births. Nursing Notes were reviewed. REVIEW OF SYSTEMS Review of Systems REVIEW OF SYSTEMS: Positives and pertinent negatives noted in my history PAST MEDICAL HISTORY Past Medical History: Diagnosis Date Anxiety Bipolar disorder (HCC) Depression Epilepsy (HCC) PCOS (polycystic ovarian syndrome) SURGICAL HISTORY Past Surgical History: Procedure Laterality Date AXILLARY SURGERY Right CYST REMOVAL x2 EYE SURGERY Left 1989 CURRENT MEDICATIONS Previous Medications No medications on file ALLERGIES Penicillins FAMILY HISTORY Family History Problem Relation Name Age of Onset Cancer Father lung Diabetes Mother's Sister Hypertension Sister Hypertension Mother SOCIAL HISTORY Social History Socioeconomic History Marital status: Tobacco Use Smoking status: Every Day Packs/day: 0.25 Types: Cigarettes Start date: 12/25/2008 Smokeless tobacco: Never Substance and Sexual Activity Alcohol use: Not Currently Drug use: Yes Types: Marijuana SCREENINGS PHYSICAL EXAM ED Triage Vitals [11/08/22 1133] Temp Heart Rate Resp BP 36.4 C (97.5 F) 75 18 131/89 SpO2 Temp Source Heart Rate Source Patient Position 97 % Oral Monitor Sitting BP Location FiO2 (%) Right arm -- Physical Exam CONSTITUTIONAL: Vital signs are charted, patient is awake alert oriented and in no severe acute distress, well-hydrated, normal appearance GEN. APPEARANCE: Well-developed well-nourished individual in no severe acute distress, vital signs are charted. LUNGS: Breath sounds are equal, clear to auscultation, no wheeze retractions or cyanosis and no crackles present. HEART: Regular rate and rhythm no murmur or thrill or rub, strong heart tones BACK: No thoracic lumbar or flank pain. ABDOMEN: Soft but some generalized tenderness in the infraumbilical region somewhat suprapubic and towards the right lower quadrant but no guarding rebound rigidity or palpable mass. NEURO: Cranial nerves II through XII are intact, motor and sensory exams are intact and normal, muscle strength is 5/5, deep tendon reflexes are 2/4, sensation to touch and pain is intact and normal, no ataxia, normal gait, no focal findings noted. PSYCH: Awake alert oriented, normal mood and affect. DIAGNOSTIC RESULTS RADIOLOGY per my interpretation: CT scan interpreted by me I do not see any inflammatory findings in the right lower quadrant, I do not see any signs of suggest obstruction either. Interpretation per the Radiologist below, if available at the time of this note: US pelvis transvaginal Final Result Unremarkable pelvic ultrasound. Report Dictated on Workstation: [email or web address] Electronically Signed By: Rafa Woo Electronically Signed Date/Time: 11/08/2022 3:[address] abdomen pelvis w contrast Final Result The gallbladder is contracted. No acute abdominal or pelvic process. No CT findings to account for the patient's current symptomatology. Report Dictated on Electronically Signed By: Yann Treadwell Electronically Signed Date/Time: 11/08/2022 1:43 PM EDT ED BEDSIDE ULTRASOUND: Performed by ED Physician - none LABS: Labs Reviewed CBC WITH AUTO DIFFERENTIAL - Abnormal Result Value Auto WBC 7.0 RBC 4.61 Hemoglobin 14.1 Hematocrit 40.4 MCV 87.6 MCH 30.6 MCHC 34.9 RDW 12.2 Platelets 361 MPV 9.8 Neutrophils Relative 53.7 Lymphocytes Relative 33.2 Monocytes Relative 7.6 Eosinophils Relative 4.7 Basophils Relative 0.7 Immature Grans % 0.1 (*) Neutrophils Absolute 3.7 Lymphocytes Absolute 2.3 Monocytes Absolute 0.5 Eosinophils Absolute 0.3 Basophils Absolute 0.1 Immature Grans Absolute 0.0 COMPREHENSIVE METABOLIC PANEL - Abnormal SODIUM 138 POTASSIUM 3.8 CHLORIDE 105 CARBON DIOXIDE 29 ANION GAP 4 UREA NITROGEN 15 CREATININE 0.75 GLUCOSE 125 (*) CALCIUM 9.1 AST (SGOT) 34 ALT 19 ALKALINE PHOSPHATASE 65 ALBUMIN 4.1 BILIRUBIN, TOTAL 0.3 TOTAL PROTEIN 6.9 eGFR >90.0 COMPLETE URINALYSIS - Abnormal Color, Urine Yellow Clarity, Urine Extra Turbid (*) pH, Urine 8.0 Leukocytes, Urine Negative Nitrite, Urine Negative Protein, Urine Negative Glucose, Urine Normal Bilirubin, Urine Negative Ketones, Urine Negative Urobilinogen, Urine Normal Blood, Urine Negative SPECIFIC GRAVITY OF URINE (NUMERIC) 1.013 LIPASE - Normal LIPASE 106 COMPLETE URINALYSIS WITH REFLEX TO CULTURE Narrative: The following orders were created for panel order Urinalysis Complete with reflex to Culture. Procedure Abnormality Status --------- ------ Complete Urinalysis[[id number]] Abnormal Final result Please view results for these tests on the individual orders. HCG QUALITATIVE URINE HCG,URINE QUAL Negative Narrative: is the most common reason for HCG in urine, although choriocarcinoma, hydatidiform mole, and certain nontrophoblastic malignancies also result in detectable urinary HCG levels. Sensitivity = 20mIU/mL. All other labs were within normal range or not returned as of this dictation. MDM/EMERGENCY DEPARTMENT COURSE: Vitals: Vitals: 11/08/22 1133 11/08/22 1518 BP: 131/89 122/82 BP Location: Right arm Right arm Patient Position: Sitting Sitting Pulse: 75 63 Resp: 18 14 Temp: 36.4 C (97.5 F) TempSrc: Oral SpO2: 97% 99% Weight: 99.8 kg (220 lb) Height: 1.626 m (5' 4 ) Medications sodium chloride 0.9 % bolus 1,000 mL (0 mL IntraVENous Stopped 11/08/22 1316) MEDICAL DECISION MAKING Clinically she is not in severe acute distress she is not febrile septic toxic and does not have signs to suggest an acute surgical abdomen at this point. Differential diagnosis does include abdominal pain from GI etiology including possible appendectomy versus obstruction or other GI issues, but also issues given her history of polycystic ovary disease as well. Less likely urinary tract infection. I ordered CBC chemistries laboratory studies urinalysis and we started off with a CT scan of the abdomen pelvis. Progress note: Patient had returned from CAT scan, her laboratory studies returned these were reviewed by myself with a normal white count of 7 unremarkable hemoglobin of 14.1 chemistries unremarkable renal functions normal LFTs normal as well 2. Her urine has no signs of clear-cut infection and her test was negative. CT scan did not show any evidence on my interpretation of an acute appendicitis or obstruction or other clear-cut etiology of her abdominal discomfort. Because of that I went ahead and ordered a pelvic ultrasound with her history of poly ovary cystic disease. External note #1 reviewed by myself family medicine practice office visit 01/24/2022 confirms her polycystic ovary disease and PROJECT DEVELOPMENT MANAGER referral. Reexam: Patient is resting comfortably not in severe distress, the ultrasound was reviewed by the radiologist please see their note there was no signs of significant abnormalities and no torsion noted either. Her white blood cell count was normal at 7 her chemistries and electrolytes are unremarkable renal functions are normal urine had no signs to suggest UTI and as noted her test was negative. Plan will be discharged for outpatient follow-up with Dr. Brady, Motrin 800 mg prescription strength will be provided #30 for pain, she is to return to the ER if there is worsening problems including pain fever bleeding vomiting urinary symptoms or any new or unusual symptoms. REVAL: CONSULTS: None FINAL IMPRESSION 1. Right lower quadrant abdominal pain DISPOSITION/PLAN Discharge outpatient follow-up PATIENT REFERRED TO: Deng Brady, [address] [place], [place] [id number] Call in 2 days DISCHARGE MEDICATIONS: New Prescriptions IBUPROFEN 800 MG TABLET Take 1 tablet (800 mg) by mouth 3 times daily for 7 days. (Comment: Please note this report has been produced using speech recognition software and may contain errors related to that system including errors in grammar, punctuation, and spelling, as well as words and phrases that may be inappropriate. If there are any questions or concerns please feel free to contact the dictating provider for clarification.) CAROLINE TROTTER MD (electronically signed) Emergency Medicine Provider Caroline Trotter MD 11/08/22 1534 [facility] 07-23-2022 Hospital Discharge instructions Patient Education 07/23/2022 13:51:29 Dental Pain Dental Pain A crack or cavity in a tooth can cause tooth pain. This is because the crack or cavity exposes the sensitive inner area of the tooth. An infection in the gum or the root of the tooth can cause pain and swelling. The pain is often made worse when you drink hot or cold beverages. It can also be worse when you bite on hard foods. Pain may spread from the tooth to your ear or the area of the jaw on the same side. Home care Follow these tips when caring for yourself at home: Don't have hot and cold foods and drinks. Your tooth may be sensitive to changes in temperature. Use toothpaste made for sensitive teeth. [place]ham gently up and down instead of sideways. Brushing sideways can wear away root surfaces if they are exposed. If your tooth is chipped or cracked, or if there is a large open cavity, put oil of cloves directly on the tooth to relieve pain. You can buy oil of cloves at drugstores. Some pharmacies carry an unaq-atv-rwrjnll toothache kit. This contains a paste that you can put on the exposed tooth to make it less sensitive. Put a cold pack on your jaw over the sore area to help reduce pain. You may use yqph-amh-lzlsdjz medicine to ease pain, unless your doctor prescribed another medicine. If you have chronic liver or kidney disease, talk with your healthcare provider before using acetaminophen or ibuprofen. Also talk with your provider if you ve had a stomach ulcer or GI bleeding. If you have signs of an infection, you will be given an antibiotic. Take it as directed. Follow-up care Follow up with your dentist, or as advised. Your pain may go away with the treatment given today. But only a dentist can fully look at and treat the cause of your pain. This will keep the pain from coming back. Call 911 Call 911 if any of these occur: Unusual drowsiness Headache or stiff neck Weakness or fainting Difficulty swallowing or breathing When to seek medical advice Call your health care provider right away if any of these occur: Your face becomes swollen or red Pain gets worse or spreads to your neck Fever of 100.4 F (38.0 C) or higher, or as directed by your healthcare provider Pus drains from the tooth [id number] [employer]. [address] [place] [address], [place] [address]. All rights reserved. This information is not intended as a substitute for professional medical care. Always follow your healthcare professional's instructions. Follow Up Care 07/23/2022 13:27:39 With:KATHY OTERO MD Address: [address] [place] [id number]- When:2-[facility] days [facility] department Discharge summary Discharge Instructions Thank you for allowing [facility] to assist you with your healthcare needs. The following is important discharge information regarding your hospital visit. Diagnosis from Today's Visit Dental pain Dentalgia Ear pain What to Do Next Instructions from Your Care Team No qualifying data available. Post Acute Orders No qualifying data available. You Need to Schedule the Following Appointments Follow Up with KATHY OTERO MD When Within 2-4 days Where: [address] [place] [id number]- Allergies NKA Medications Please ask your primary doctor or pharmacist before taking any other medication not listed, including over the counter drugs, herbal medications, vitamins and or supplements as they may interact with your home medications. What How Much When Why Instructions Last Dose New acetaminophen-hydrocodone ([place] 325- 5 mg oral tablet) 1 tab(s) by mouth Every 6 hours as needed for as needed for pain Dentalgia Duration: 3 Days Printed Prescription New clindamycin (clindamycin 150 mg oral capsule) 3 cap by mouth Three (3) times a day Duration: 10 Days Printed Prescription New ondansetron (ondansetron 4 mg oral tablet, disintegrating) 1 tab(s) by mouth Every 6 hours Duration: 4 Days Printed Prescription Unchanged magnesium chloride Unchanged multivitamin, (PNV Plus) 1 tab(s) by mouth Once a day Unchanged omeprazole (NF) (PriLOSEC OTC) 20 Milligram by mouth Once a day Please take this list to your next doctor s visit. Bring all medications you take, including over the counter medications, herbals and other supplements with you to your doctor s visit. Patients and families are reminded to discard old lists and to update any records with all medication providers or retail pharmacies. Education Materials Dental Pain A crack or cavity in a tooth can cause tooth pain. This is because the crack or cavity exposes the sensitive inner area of the tooth. An infection in the gum or the root of the tooth can cause pain and swelling. The pain is often made worse when you drink hot or cold beverages. It can also be worse when you bite on hard foods. Pain may spread from the tooth to your ear or the area of the jaw on the same side. Home care Follow these tips when caring for yourself at home: Don't have hot and cold foods and drinks. Your tooth may be sensitive to changes in temperature. Use toothpaste made for sensitive teeth. [place]ham gently up and down instead of sideways. Brushing sideways can wear away root surfaces if they are exposed. If your tooth is chipped or cracked, or if there is a large open cavity, put oil of cloves directly on the tooth to relieve pain. You can buy oil of cloves at [employer]. Some pharmacies carry an ymgn-wfm-bjvtawb toothache kit. This contains a paste that you can put on the exposed tooth to make it less sensitive. Put a cold pack on your jaw over the sore area to help reduce pain. You may use mzob-kmt-oamyegz medicine to ease pain, unless your doctor prescribed another medicine. If you have chronic liver or kidney disease, talk with your healthcare provider before using acetaminophen or ibuprofen. Also talk with your provider if you ve had a stomach ulcer or GI bleeding. If you have signs of an infection, you will be given an antibiotic. Take it as directed. Follow-up care Follow up with your dentist, or as advised. Your pain may go away with the treatment given today. But only a dentist can fully look at and treat the cause of your pain. This will keep the pain from coming back. Call 911 Call 911 if any of these occur: Unusual drowsiness Headache or stiff neck Weakness or fainting Difficulty swallowing or breathing When to seek medical advice Call your health care provider right away if any of these occur: Your face becomes swollen or red Pain gets worse or spreads to your neck Fever of 100.4 F (38.0 C) or higher, or as directed by your healthcare provider Pus drains from the tooth [id number] [employer]. [address] [place] [address], [place] [address]. All rights reserved. This information is not intended as a substitute for professional medical care. Always follow your healthcare professional's instructions. Additional Information VACCINATE! IT SAVES LIVES! Members of the community who have not yet received the COVID-19 vaccine and would like to receive it can visit one of [facility] vaccine clinics. There are many vaccine clinic locations within the [facility]. For locations and available times, please visit [email or web address]. It is important to note that some COVID mobile vaccine clinics are held outdoors and may be canceled in rainy or stormy conditions. To learn more about pediatric vaccinations (ages 5-11), we invite you to visit the [employer] [facility] webpage. [email or web address] [email or web address] [email or web address] To learn more about the COVID-19 vaccine, we invite you to visit the [facility] website for a list of frequently asked questions. [email or web address] quently_[email or web address] [facility] Patient Portal Access Instructions: Stay connected with your healthcare team and access your personal medical information anytime with the [facility] Patient Portal. If you would like a full copy of your medical records please contact the [facility] Medical Records Department Saturday through Saturday between 8a.m. and 4:30p.m. Please follow the directions below to access the portal: 1.Access the email account you provided upon registration to the hospital.2.Look for an invitation email from [facility].3.Open the email and access the invitation link: Accept Invitation to [facility]4.Fill in the required kirkpatrick to create your account. Sign into www.[employer] with your username and password that you created in the above steps to stay up to date. You can then view a summary of results, a summary of your visits, and the ability to download your summaries to your computer or send the information securely to a physician. Remember that your healthcare information is confidential, so carefully consider who you will allow to register on the [facility] Patient Portal for access to your information. You can also access the [facility] Patient Portal on the [employer]. Simply click on Health Records under Health Data and then click on the [facility] logo. HOW TO SAFELY DISPOSE OF PRESCRIPTION MEDICATIONS Please use one of the following methods to safely dispose of your unused medications. 1.Use a drug disposal kit: the drug disposal pouch allows you to safely discard your old and unused drugs. Ask your nurse to give you one when you are discharged.2.Visit a local take-back location: Many local pharmacies and police departments have programs that collect old and unwanted prescription drugs. Call your local pharmacy or go to http://[employer]/1N2Mc4w to find one close to you.3.Make use of household items: Use cat litter or old coffee grounds to dispose medications if other options are not available. Mix your drugs with these household products, seal them in an airtight container and throw it into the garbage. Call [facility]: [phone] to be sure your drugs can be disposed of in this way. Some medicines may require a different approach.4.Never flush your medications down the toilet. IF YOU HAVE BEEN PRESCRIBED AN OPIOIDS FOR PAIN If you have been prescribed an opioid (such as hydrocodone, oxycodone or morphine), it is critical to understand the possible side effects and risks of opioid pain medications. Even when taken as directed, opioids can have several side effects including: Tolerance, meaning you might need to take more of a medication for the same pain relief. Nausea, vomiting and/or constipation. Sleepiness, dizziness, dry mouth, confusion, depression or itching. Physical dependence, meaning you have withdrawal symptoms when a medication is stopped ? this can develop within a few days. KNOW YOUR RESPONSIBILITIES It is important to know exactly how much and how often to take the opioid pain medications you are prescribed. Never take opioids in higher amounts or more often than prescribed. Do not combine opioids with alcohol or other drugs that cause drowsiness, such as benzodiazepines, also known as benzos, including diazepam and alprazolam, muscle relaxants or sleep aids. Never sell or share prescription opioids. This is illegal. Store opioids in a secure place and out of reach of others (including children, family, friends and visitors). The last page(s) of this document has been signed and retained as a CHART COPY Signatures Patient Education Materials Dental Pain Medication Leaflets My discharge plan and instructions have been reviewed and explained to me and IWILBER KAYLA D understand my current condition and have read and understand these discharge instructions. I have received a written copy of the plan/instructions. If I have questions, I am aware that I should contact my doctor. 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 [facility] Evaluation + Plan note No data available for this section [facility] Diagnosis Dizziness- Primary Dizziness and giddiness History of seizure [facility] Diagnosis Dizziness- Primary Dizziness and giddiness History of seizure [facility] Diagnosis Dizziness Dizziness and giddiness History of seizure [facility] Diagnosis Advanced maternal age, primigravida, antepartum- Primary Elderly primigravida, antepartum Obesity in Obesity complicating , childbirth, or the puerperium, unspecified as to episode of care or not applicable History of depression/anxiety/bipolar/ TPSD Personal history of other mental disorder History of epilepsy Personal history of other disorders of nervous system and sense organs [facility] Diagnosis with uncertain dates in first trimester- Primary Advanced maternal age, primigravida, antepartum Elderly primigravida, antepartum Obesity in Obesity complicating , childbirth, or the puerperium, unspecified as to episode of care or not applicable History of depression Personal history of other mental disorder History of epilepsy Personal history of other disorders of nervous system and sense organs Encounter for screening for malignant neoplasm of cervix Screening for malignant neoplasm of the cervix Special screening examination for human papillomavirus (HPV) [facility] Diagnosis Advanced maternal age, primigravida, antepartum- Primary Elderly primigravida, antepartum [facility] Diagnosis with uncertain dates in first trimester- Primary of unknown anatomic location state, incidental [facility] Diagnostic Procedure Only (Routine) - Authorized Specialty Diagnoses / Procedures Referred By Ursula alexis Referred To Contact [facility] Diagnoses Advanced maternal age, primigravida, antepartum Procedures OBSTETRIC ULTRASOUND WHI US PREG UTERUS AFTER 1ST TRIMEST GESTATION Huang Beard MD [facility] [place] [address] [facility] [address] [place] [address] Referral ID Status Reason Start Date Expiration Date Visits Requested Visits Authorized [id number] Authorized Auto-Generat ed Referral 3 04/28/2024 1 1 [facility] Summary Purpose Family History No Family History Records FoundNo Family History Records FoundNo Family History Records FoundNo Family History Records Found Advance Directives No Advanced Directives Records FoundNo Advanced Directives Records FoundNo Advanced Directives Records FoundNo Advanced Directives Records Found Reason for Referral Specialty Diagnoses / Procedures Referred By Ursula alexis Referred To Contact Diagnoses Dizziness History of seizure Procedures EEG Deng Brady, DO [address] [place] [address] Referral ID Status Reason Start Date Expiration Date V isits Requested Visits Authorized [id number] Incomplete 11/12/2022 05/11/2023 1 1 Specialty Diagnoses / Procedures Referred By Ursula t Referred To Contact Radiology Diagnoses Dizziness History of seizure Procedures MR brain w and wo contrast Deng Brady F, DO [address] [place] [address] Referral ID Status Reason Start Date Expiration Date V isits Requested Visits Authorized [id number] Pending Review 11/12/2022 05/11/2023 1 1 Health Concerns Problem Noted Date Diagnosed Date [facility] Education - COMMON 04/25/2023 Problem Noted Date Diagnosed Date [facility] Education - COMMON 04/25/2023 Problem Noted Date Diagnosed Date [facility] Education - COMMON 04/25/2023 Additional Source Comments INFORMATION SOURCE (unrecogn ized section and content) DATE CREATED AUTHOR AUTHOR'S ORGANIZ ATION 07/28/2022 [employer] ([place]) DATE CREATED AUTHOR AUTHOR'S ORGANIZ ATION 12/13/2022 [employer] [facility] DATE CREATED AUTHOR AUTHOR'S ORGANIZ ATION 06/20/2023 [facility] Care Team (unrecognized sect ion and content) Care Team Personnel Name: KATHY OTERO MD Member Role: Primary Care Physician Address: Address: [address] [place] [address] [place] Name: ANA Light Position: ED RN Member Role: ED RN Name: DEWEY LEAVITT DO Position: ED Physician Member Role: ED Physician Address: Address: [address] [place] [address] Care Team Related Persons Name: VIOLA BURNETT Address: [id number] [place] [address] [address] [place] [address] Name: VIOLA BURNETT Address: Home [address] [place] [address] Name: VIOLA BURNETT Address: Home [id number] [place] [address] [address] [place] [address] [place] Name: VILOA BURNETT Address: Home [id number] [place] [address] [address] [place] [address] Reason for Visit (unrecogniz ed section and content) Reason Comments Dizziness For about a week Reason Onset Date Comments Orders 11/12/2022 MRI-Head / EEG Specialty Diagnoses / Procedures Referred By Ursula alexis Referred To Contact Radiology Diagnoses Dizziness History of seizure Procedures MR brain w and wo contrast Deng Brady F, DO [address] [place] [address] [facility] [address] [place] [address] Referral ID Status Reason Start Date Expiration Date Visits Re quested Visits Authorized [id number] Closed 11/12/2022 05/11/2023 1 1 Specialty Diagnoses / Procedures Referred By Ursula alexis Referred To Contact Radiology Diagnoses Dizziness History of seizure Procedures EEG Deng Brady, DO [address] [place] [address] Referral ID Status Reason Start Date Expiration Date Visits Re quested Visits Authorized [id number] Closed 11/12/2022 05/11/2023 1 1 Reason Comments Care Reason Comments Initial OB Visit Reason Comments Orders Reason Comments US Scheduled Active and Recently Administ ered Medications (unrecognized section and content) Care Teams (unrecognized sec tion and content) Specimen Processor Relationship Specialty Start Date End Date Deng Brady, DO [address] [place] [address] PCP - General 12/25/21 Specimen Processor Relationship Specialty Start Date End Date Deng Brady , DO [address] [place] [address] PCP - General 12/25/21 Specimen Processor Relationship Specialty Start Date End Date Caitlyn Deng Vela, DO [address] [place] [address] PCP - General 12/25/21 Specimen Processor Relationship Specialty Start Date End Date Deng Brady , DO [address] [place] [address] PCP - General 12/25/21 Specimen Processor Relationship Specialty Start Date End Date Deng Brady, DO [address] [place] [address] PCP - General 12/25/21 Specimen Processor Relationship Specialty Start Date End Date Deng Brady, [address] [place] [address] PCP - General 12/25/21 Specimen Processor Relationship Specialty Start Date End Date Kathy Otero MD [address] [place], [place] [address] PCP - General Internal Medicine 07/20/15 Specimen Processor Relationship Specialty Start Date End Date Kathy Otero MD [address] [place], [place] [address] PCP - General Internal Medicine 07/20/15 Specimen Processor Relationship Specialty Start Date End Date Kathy Otero MD [address] [place], [place] [address] PCP - General Internal Medicine 07/20/15 Specimen Processor Relationship Specialty Start Date End Date Kathy Otero MD [address] [place], [place] [address] PCP - General Internal Medicine 07/20/15 Source Comments (unrecognize d section and content) In the event this informatio n is protected by the Federal Confidentiality of Alcohol and Drug Abuse Patient Records regulations: The Federal rules restrict any use of the information to criminally investigate or prosecute any alcohol or drug abuse patient.[facility] the event this information is protected by the Federal Confidentiality of Alcohol and Drug Abuse Patient Records regulations: The Federal rules restrict any use of the information to criminally investigate or prosecute any alcohol or drug abuse patient.[facility] Center[facility] the event this information is protected by the [facility] Confidentiality of Alcohol and Drug Abuse Patient Records regulations: The Federal rules restrict any use of the information to criminally investigate or prosecute any alcohol or drug abuse patient.[facility] Center[facility] the event this information is protected by the Federal Confidentiality of Alcohol and Drug Abuse Patient Records regulations: The Federal rules restrict any use of the information to criminally investigate or prosecute any alcohol or drug abuse patient.[facility] FOR RECORDS PERTAINING TO PATIENTS WHO ARE OR HAVE BEEN ENROLLED IN A CHEMICAL DEPENDENCY/SUBSTANCEABUSE PROGRAM, SOME INFORMATION MAY BE OMITTED. This clinical summary was aggregated from multiple sources. Caution should be exercised in using it in the provision of clinical care. This summary normalizes information from multiple sources, and as a consequence, information in this document may materially change the coding, format and clinical context of patient data. In addition, data may be omitted in some cases. CLINICAL DECISIONS SHOULD BE BASED ON THE PRIMARY CLINICAL RECORDS. [facility]. provides no warranty or guarantee of the accuracy or completeness of information in this document.
[2023-07-13 14:19] LABS: Bacteria 0 SEEN /hpf (None Seen); Mucous, Urine 0 SEEN /hpf (<or=2+); Red Blood Cells-Urine 0 SEEN /hpf (0-5); White Blood Cells 0 SEEN /hpf (0-5)
[2023-07-13] MEDS: Acetaminophen 500 MG Tablet 1000 MG PO (14:21)
[2023-07-13 14:23] LABS: Color, Urine Yellow (Yellow); Glucose, Dipstick Normal (Normal); Hematocrit 39.1 % (37-47); Hemoglobin 13.6 g/dL (12.0-15.0); Ketone-Dipstick Negative (Negative); Leukocyte Esterase-Dipstick Negative /ul (Negative); Mean Corp Hgb Conc 34.8 g/dL (32-36); Mean Corpuscular Hgb 30.9 pg (27.0-32.0); Mean Corpuscular Volume 88.9 fL (81-99); Mean Platelet Vol. 9.4 fl (6.2-12.0); Nitrite-Dipstick Negative (Negative); Occult Blood-Urine 10 /ul (Negative); Platelet Count 355 K/mm3 (150-450); Protein-Dipstick Negative (Negative); RBC Distribution Width CV 12.2 % (11.6-14.6); Urine Bilirubin Dipstick Negative (Negative); Urine Clarity Clear (Clear); Urine Urobilinogen Normal (Normal); Urine pH 6.5 (5.0 - 8.0); White Blood Count 11.3 K/mm3 (4.4-11.0)
[2023-07-13 14:28] LABS: Squamous Epithelial Cells - UA 5-10 SEEN /hpf (5-10)
[2023-07-13 14:43] LABS: ALB/GLOB Ratio 0.8 RATIO (0.9-2.4); AST(SGOT) 14 U/L (15-37); Alanine Aminotransfer ALT/SGPT 13 U/L (13-56); Albumin, Serum 2.8 g/dL (3.2-5.0); Alkaline Phosphatase 83 U/L (45-117); Anion Gap 9 (5-15); BUN 8 mg/dL (7-18); BUN/Creat Ratio 14.2 RATIO (10-20); Chloride 108 mmol/L (98-107); Creatinine, Serum 0.56 mg/dL (0.55-1.02); EST Glomerular Filtration Rate 130 mL/min (>60); Est Glom Filt Rate - Afr Amer 157 mL/min (>60); Globulin 3.7 g/dL (2.2-4.2); Glucose 71 mg/dL (74-106); Potassium 3.7 mmol/L (3.5-5.1); Protein, Total 6.5 g/dL (6.4-8.2); Sodium Level 137 mmol/L (136-145); Uric Acid 3.6 mg/dL (2.6-6.0)
[2023-07-13 14:46] LABS: ROM Internal Control Test YES-OK TO RESULT pt. (Internal QC); ROM Patient Test Negative (Negative)
[2023-07-13 15:08] LABS: Protein, Urine (Random) < 6.0 mg/dL (<11.9)
--- NOTE | 2023-07-14 12:40 | OB.TRI.PN ---
Progress Notes Progress Note: at 23wk, YANIRA 11/09/23. Presents for abdominal pain and lower back pain. No vaginal bleeding, leakage of fluid. No treatment for pain relief. Laboratory Studies: Laboratory Tests 07/13/23 07/13/23 07/13/23 Range/Units 14:15 14:00 14:00 WBC (4.4-11.0) K/mm3 RBC (4.2-5.4) M/mm3 Hgb (12.0-15.0) g/dL Hct (37-47) % MCV (81-99) fL MCH (27.0-32.0) pg MCHC (32-36) g/dL RDW Std Deviation (35.1-43.9) fl RDW Coeff of Tyson (11.6-14.6) % Plt Count (150-450) K/mm3 MPV (6.2-12.0) fl Sodium (136-145) mmol/L Potassium (3.5-5.1) mmol/L Chloride (98-107) mmol/L Carbon Dioxide (21.0-32.0) mmol/L Anion Gap (5-15) BUN (7-18) mg/dL Creatinine Estim Creat Clear Calc Est GFR (MDRD) Af Amer Est GFR (MDRD) Non-Af BUN/Creatinine Ratio (10-20) RATIO Glucose (74-106) mg/dL Uric Acid Calcium (8.5-10.1) mg/dL Total Bilirubin (0.20-1.00) mg/dL AST 14 L ALT 13 Cancelled Alkaline Phosphatase 83 (45-117) U/L Total Protein 6.5 (6.4-8.2) g/dL Albumin 2.8 L (3.2-5.0) g/dL Globulin 3.7 (2.2-4.2) g/dL Albumin/Globulin Ratio 0.8 L (0.9-2.4) RATIO Urine Color Yellow (Yellow) Urine Clarity Clear (Clear) Urine pH 6.5 (5.0 - 8.0) Ur Specific [place] 1.010 (1.002-1.030) Urine Protein Negative (Negative) mg/dl Urine Glucose (UA) Normal (Normal) mg/dl Urine Ketones Negative (Negative) mg/dl Urine Occult Blood 10 H (Negative) /ul Urine Nitrite Negative (Negative) Urine Bilirubin Negative (Negative) mg/dL Urine Urobilinogen Normal (Normal) mg/dl Ur Leukocyte Esterase Negative (Negative) /ul Urine RBC 0 SEEN (0-5) /hpf Urine WBC 0 SEEN (0-5) /hpf Ur Squamous Epith Cells 5-10 SEEN (5-10) /hpf Urine Bacteria 0 SEEN (None Seen) /hpf Urine Mucus 0 SEEN (<or=2+) /hpf U Random Total Protein < 6.0 (<11.9) mg/dL Urine Creatinine 40.50 (NO RANGE EST.) mg/dL Protein/Creatinin Ratio TNP Vag Amniotic Fld Detect Negative (Negative) 07/13/23 07/13/23 07/13/23 Range/Units 14:00 14:00 14:00 WBC (4.4-11.0) K/mm3 RBC (4.2-5.4) M/mm3 Hgb (12.0-15.0) g/dL Hct (37-47) % MCV (81-99) fL MCH (27.0-32.0) pg MCHC (32-36) g/dL RDW Std Deviation (35.1-43.9) fl RDW Coeff of Tyson (11.6-14.6) % Plt Count (150-450) K/mm3 MPV (6.2-12.0) fl Sodium (136-145) mmol/L Potassium (3.5-5.1) mmol/L Chloride (98-107) mmol/L Carbon Dioxide (21.0-32.0) mmol/L Anion Gap (5-15) BUN (7-18) mg/dL Creatinine Estim Creat Clear Calc Est GFR (MDRD) Af Amer 157 Est GFR (MDRD) Non-Af 130 Cancelled BUN/Creatinine Ratio 14.2 (10-20) RATIO Glucose 71 L (74-106) mg/dL Uric Acid 3.6 Cancelled Calcium 9.0 (8.5-10.1) mg/dL Total Bilirubin 0.30 (0.20-1.00) mg/dL AST Cancelled ALT Alkaline Phosphatase (45-117) U/L Total Protein (6.4-8.2) g/dL Albumin (3.2-5.0) g/dL Globulin (2.2-4.2) g/dL Albumin/Globulin Ratio (0.9-2.4) RATIO Urine Color (Yellow) Urine Clarity (Clear) Urine pH (5.0 - 8.0) Ur Specific [place] (1.002-1.030) Urine Protein (Negative) mg/dl Urine Glucose (UA) (Normal) mg/dl Urine Ketones (Negative) mg/dl Urine Occult Blood (Negative) /ul Urine Nitrite (Negative) Urine Bilirubin (Negative) mg/dL Urine Urobilinogen (Normal) mg/dl Ur Leukocyte Esterase (Negative) /ul Urine RBC (0-5) /hpf Urine WBC (0-5) /hpf Ur Squamous Epith Cells (5-10) /hpf Urine Bacteria (None Seen) /hpf Urine Mucus (<or=2+) /hpf U Random Total Protein (<11.9) mg/dL Urine Creatinine (NO RANGE EST.) mg/dL Protein/Creatinin Ratio Vag Amniotic Fld Detect (Negative) 07/13/23 07/13/23 07/13/23 Range/Units 14:00 14:00 14:00 WBC 11.3 H (4.4-11.0) K/mm3 RBC 4.40 (4.2-5.4) M/mm3 Hgb 13.6 (12.0-15.0) g/dL Hct 39.1 (37-47) % MCV 88.9 (81-99) fL MCH 30.9 (27.0-32.0) pg MCHC 34.8 (32-36) g/dL RDW Std Deviation 40.0 (35.1-43.9) fl RDW Coeff of Tyson 12.2 (11.6-14.6) % Plt Count 355 (150-450) K/mm3 MPV 9.4 (6.2-12.0) fl Sodium 137 (136-145) mmol/L Potassium 3.7 (3.5-5.1) mmol/L Chloride 108 H (98-107) mmol/L Carbon Dioxide 20.0 L (21.0-32.0) mmol/L Anion Gap 9 (5-15) BUN 8 (7-18) mg/dL Creatinine 0.56 Cancelled Estim Creat Clear Calc 174.30 Cancelled Est GFR (MDRD) Af Amer Cancelled Est GFR (MDRD) Non-Af BUN/Creatinine Ratio (10-20) RATIO Glucose (74-106) mg/dL Uric Acid Calcium (8.5-10.1) mg/dL Total Bilirubin (0.20-1.00) mg/dL AST ALT Alkaline Phosphatase (45-117) U/L Total Protein (6.4-8.2) g/dL Albumin (3.2-5.0) g/dL Globulin (2.2-4.2) g/dL Albumin/Globulin Ratio (0.9-2.4) RATIO Urine Color (Yellow) Urine Clarity (Clear) Urine pH (5.0 - 8.0) Ur Specific [place] (1.002-1.030) Urine Protein (Negative) mg/dl Urine Glucose (UA) (Normal) mg/dl Urine Ketones (Negative) mg/dl Urine Occult Blood (Negative) /ul Urine Nitrite (Negative) Urine Bilirubin (Negative) mg/dL Urine Urobilinogen (Normal) mg/dl Ur Leukocyte Esterase (Negative) /ul Urine RBC (0-5) /hpf Urine WBC (0-5) /hpf Ur Squamous Epith Cells (5-10) /hpf Urine Bacteria (None Seen) /hpf Urine Mucus (<or=2+) /hpf U Random Total Protein (<11.9) mg/dL Urine Creatinine (NO RANGE EST.) mg/dL Protein/Creatinin Ratio Vag Amniotic Fld Detect (Negative) NST 145 No contractions Assessment & Plan (1) Abdominal pain affecting : PLAN: Plan 1) Labs unremarkable 2) Vitals stable 3) Pain stopped after Tylenol 4) D/C home
== END 2023-07-13 15:30 | disposition home or self-care (01) ==
LOC: WPOUT 13:15 → WP 13:16
PROVIDERS: Visit Provider Advanced Practice Midwife
DX: O99.891 Other specified diseases and conditions complicating pregnancy (principal); R10.9 Unspecified abdominal pain; M54.50 Low back pain, unspecified; Z3A.00 Weeks of gestation of pregnancy not specified
CPT/HCPCS: 36415; 59025; 59050; 80053; 81001; 82570; 84112; 84156; 84550; 85027; 87086; 87088; 99221; G0378

== ENCOUNTER 2023-10-20 19:18 | Inpatient (IN) | payer OTHER, SELFPAY ==
[2023-07-13 13:24] VITALS: RESP 14
[2023-10-20 19:39] VITALS: BP 155/97; PULSE 93
[2023-10-20 19:40] VITALS: PULSE 112; O2SAT 97
[2023-10-20 19:55] VITALS: RESP 16; TEMP 36.9
[2023-10-20 20:00] VITALS: BMI 44.7
[2023-10-20] MEDS: Lactated Ringers 1,000 ML 50 ML IV (20:15)
--- NOTE | 2023-10-20 20:16 | PCM.HP.OB ---
HPI - General General Date of Admission: 10/20/23 HPI Narrative SERGIO MERINO, is a 33 F who presents at 37w1d for medically indicated induction of labor due to gestational hypertension, morbid obesity, and advance maternal age Maternal Data Information YANIRA Calculator Estimated Delivery Date Method Current WG Current Estimate 11/09/23 Manual 37w 1d PFSH PFSH Medical History (Updated 10/20/23 @ 20:58 by Kavita Spence CNM) Anxiety Chronic hypertension Depression PCOS (polycystic ovarian syndrome) Seizures Home Medications aspirin 81 mg tablet,delayed release (Adult Aspirin Regimen) 162 mg PO DAILY 07/13/23 [History Last Taken 10/20/23] famotidine 20 mg tablet (Acid Controller) 20 mg PO DAILY heartburn 07/13/23 [History Last Taken 10/19/23] vit 122-ferrous fumarate 27 mg iron-folic acid 800 mcg tablet ( Multi) tab PO DAILY 07/13/23 [History Last Taken 10/20/23] nifedipine 30 mg tablet,extended release 24 hr (Procardia XL) 30 mg PO DAILY hypertension 10/20/23 [History Last Taken 10/20/23] Allergy/AdvReac Type Severity Reaction Status Date / Time bee pollen Allergy Severe Anaphylaxis Verified 10/20/23 19:57 Surgical History (Updated 10/20/23 @ 20:03 by Marcia Delaney) History of surgery History of surgery History of surgery Social History Smoking Status: Former smoker NST FHR Rate Baby A Baseline: 125 Variability:: Moderate Accelerations:: 15 x 15 Decelerations:: None FHR Category:: Category I Uterine Activity:: None ROS Constitutional Constitutional: Reports systems reviewed and no addt'l complaints, except as documented; Denies headache(s) Eyes Eyes: Denies acute decrease in peripheral vision, blurry vision or change in vision ENT HEENT: Reports systems reviewed and no addt'l complaints, except as documented Cardiovascular Cardiovascular: Denies chest pain or dizziness Respiratory/Chest Respiratory/Chest: Denies cough, dyspnea, dyspnea on exertion, shortness of breath at rest or shortness of breath with exertion Gastrointestinal Gastrointestinal: Denies abdominal pain, diarrhea, nausea or vomiting Genitourinary Genitourinary: Denies abdominal discomfort Musculoskeletal Musculoskeletal: Denies limited range of motion Integumentary Integumentary: Reports systems reviewed and no addt'l complaints, except as documented Neurologic Neurologic: Reports systems reviewed and no addt'l complaints, except as documented Psychiatric Psychiatric: Reports systems reviewed and no addt'l complaints, except as documented Endocrine Endocrinology: Reports systems reviewed and no addt'l complaints, except as documented Hematologic/Lymphatic Hematologic/Lymphatic: Reports systems reviewed and no addt'l complaints, except as documented Allergic/Immunologic Allergic/Immunologic: Reports systems reviewed and no addt'l complaints, except as documented Vital Signs Vital Signs Vital Signs: 10/20/23 19:39 10/20/23 19:39 10/20/23 19:40 Temperature Temperature Source Pulse Rate 93 112 H Respiratory Rate Blood Pressure 155/97 H BP Systolic 155 BP Diastolic 97 Pulse Ox 10/20/23 19:40 10/20/23 19:55 10/20/23 19:55 Temperature Temperature Source Temporal Pulse Rate Respiratory Rate 16 Blood Pressure BP Systolic BP Diastolic Pulse Ox 97 10/20/23 19:55 Temperature 98.5 F Temperature Source Pulse Rate Respiratory Rate Blood Pressure BP Systolic BP Diastolic Pulse Ox Weight Weight: 268 lb 12.8 oz Body Mass Index (BMI) 44.7 Physical Exam Const alert and oriented x3 General Appearance: cooperative Orientation / Consciousness: awake, oriented to person, oriented to place and oriented to time Exam Limitations: no limitations HEENT normocephalic Head and Scalp: normal to inspection, normocephalic and atraumatic Face and Sinus: normal facial exam Eyes General Eye: normal appearance of both eyes Neck full ROM Chest Chest: symmetrical chest wall rise Resp normal respiratory effort and normal air movement Auscultation: clear to auscultation bilaterally Cardio regular rate, regular rhythm, S1 normal heart sound, S2 normal heart sound, no murmurs, no rub, no gallops and no clicks GI normal to inspection, nondistended, normoactive bowel sounds and non-tender appearance of the vagina normal Bladder / Kidney Exam: no CVA tenderness Manual OB Exam: estimated gestational size appropriate, presentation cephalic, dilated 0.5cm, effaced 50, station -3 and other doherty inserted through cervical os with stylus, 30ml NS instilled Amniotic Fluid: no amniotic fluid noted Back/Spine normal ROM Extremity normal to inspection and full ROM Skin no rashes or lesions noted Neuro oriented x3, CN's II-XII intact bilaterally and moves all extremities Sensorium / Orientation: awake, alert and oriented to person Motor Exam: clonus absent Deep Tendon Reflexes: Rt Patellar (L4): 2+ and Lt Patellar (L4): 2+ Labs Labs Labs: Blood Type Pending Antibody Screen Pending Hct 37.0 % (37-47) Hgb 12.6 g/dL (12.0-15.0) Syphilis Total Ab Pending RPR negative HBsAG negative HIV negative HepC negative Rubella Immune O positive Assessment & Plan (1) 37 weeks gestation of : (2) Encounter for induction of labor: (3) Obesity affecting , antepartum: PLAN: Plan 1) Admit to labor and delivery 2) Routine labs and preeclampsia labs 3) Continuous EFM 4) Doherty and cytotec for cervical ripening and then pitocin 5) Epidural for pain management upon request 6) collaborative physician, notified of patient status and of above assessment and plan
[2023-10-20 20:27] LABS: Absolute Lymphocyte Count 2.42 X10^3/uL (0.83-4.51); Absolute Neutrophil Count 6.1 X10^3/uL (2.0-7.7); Basophil# 0.04 X10^3/uL; Basophil% 0.4 % (0-1); Eosinophil# 0.26 X10^3/uL; Eosinophils% 2.7 % (0-5); Hemoglobin 12.6 g/dL (12.0-15.0); Lymphocyte # 2.42 X10^3/ul (0.83-4.51); Lymphocyte % 24.7 % (19-41); Mean Corp Hgb Conc 34.1 g/dL (32-36); Mean Corpuscular Hgb 29.9 pg (27.0-32.0); Mean Corpuscular Volume 87.7 fL (81-99); Mean Platelet Vol. 10.2 fl (6.2-12.0); Monocyte# 0.92 X10^3/uL; Monocyte% 9.4 % (0-10); NRBC Flagged by Analyzer 0 % (0-5); Neutrophil # 6.11 X10^3/uL (2.7-7.7); Neutrophil % 62.5 % (47-70); Platelet Count 338 K/mm3 (150-450); RBC Distribution Width CV 12.7 % (11.6-14.6); Red Blood Count 4.22 M/mm3 (4.2-5.4); White Blood Count 9.8 K/mm3 (4.4-11.0)
[2023-10-20 20:31] VITALS: BP 147/102; PULSE 85
[2023-10-20] MEDS: 0.9% Normal Saline Single 100 ML IV.SOLN. INTRA-UTER (20:45)
[2023-10-20 21:17] LABS: Syphilis Antibodies Non-reactive
[2023-10-20] MEDS: CHLORHEXIDINE GLUC 2% CLOTH 1 EACH TOWELETTE TOPICAL (21:38)
[2023-10-20] MEDS: miSOPROStol 25 MCG TABLET PO (21:38)
[2023-10-20 21:56] LABS: Mucous, Urine 0 SEEN /hpf (<or=2+)
[2023-10-20 22:04] LABS: Color, Urine Yellow (Yellow); Glucose, Dipstick Normal (Normal); Ketone-Dipstick Negative (Negative); Leukocyte Esterase-Dipstick 25 /ul (Negative); Nitrite-Dipstick Negative (Negative); Occult Blood-Urine 25 /ul (Negative); Protein-Dipstick 15 mg/dl (Negative); Specific Gravity, Urine 1.025 (1.002-1.030); Urine Bilirubin Dipstick Negative (Negative); Urine Clarity Sl. Cloudy (Clear); Urine Urobilinogen Normal (Normal); Urine pH 6.5 (5.0 - 8.0)
[2023-10-20 22:06] LABS: Creatinine, Serum 0.67 mg/dL (0.55-1.02); EST Glomerular Filtration Rate 107 mL/min (>60); Est Glom Filt Rate - Afr Amer 129 mL/min (>60); Estimated Creatinine Clearance 153.51 ml/min
[2023-10-20 22:11] LABS: AST(SGOT) 15 U/L (15-37); Alanine Aminotransfer ALT/SGPT 9 U/L (13-56)
[2023-10-20 22:20] VITALS: BP 139/82; PULSE 83
[2023-10-20 22:22] LABS: Protein, Urine (Random) 23.8 mg/dL (<11.9); Protein:Creat Ratio 200 mg/g CRE (0-200)
[2023-10-20 22:26] LABS: Bacteria 2+ /hpf (None Seen); Red Blood Cells-Urine 0-5 SEEN /hpf (0-5); Squamous Epithelial Cells - UA 10-25 SEEN /hpf (5-10); White Blood Cells 0-5 SEEN /hpf (0-5)
[2023-10-20 22:33] LABS: Amphetamine Urine NEGATIVE (<1000 ng/mL); Barbiturate Urine VISTA NEGATIVE (< 200 ng/mL); Benzodiazepine Urine VISTA NEGATIVE (< 200 ng/mL); Cocaine Urine VISTA NEGATIVE (< 300 ng/mL); Ecstacy Urine VISTA NEGATIVE (< 500 ng/mL); Methadone Urine VISTA NEGATIVE (< 300 ng/mL); PCP Urine VISTA NEGATIVE (< 25 ng/mL); THC Urine VISTA NEGATIVE (< 50 ng/mL); Vista UDS pH Range 5
[2023-10-20] MEDS: Mag Hydrox/Al Hydrox/Simeth 30 ML UDC PO (22:37)
[2023-10-21] VITALS (42 sets, daily range): BP systolic 127–174; BP diastolic 73–99; PULSE 76–108; RESP 16–17; TEMP 36.4–36.9; O2SAT 94–99
[2023-10-21] MEDS: miSOPROStol 25 MCG TABLET PO (01:41)
[2023-10-21] MEDS: Oxytocin 15 Units/NS 250ml 15 UNITS/250 ML IV.SOLN 2 UNITS IV (07:22)
[2023-10-21] MEDS: NIFEdipine 30 MG Tablet PO ×2 (09:34→21:30)
[2023-10-21] MEDS: Famotidine 20 MG Tablet PO (10:50)
[2023-10-21] MEDS: CHLORHEXIDINE GLUC 2% CLOTH 1 EACH TOWELETTE TOPICAL ×2 (10:51→20:11)
[2023-10-21] MEDS: Lactated Ringers 1,000 ML 50 ML IV (14:50)
--- NOTE | 2023-10-21 16:54 | PN.OBGYN_ITS ---
Subjective Subjective AROM for clear fluid after verifying vertex with u/s. 3 cm Objective Data Objective Data Vital Signs: Vital Signs Temp Pulse Resp BP Pulse Ox 98.2 F 107 H 16 133/91 H 98 10/21/23 16:40 10/21/23 16:10 10/21/23 16:40 10/21/23 16:10 10/21/23 04:28 Weight: 121.926 kg Body Mass Index (BMI) 44.7 Intake & Output: Intake and Output for Last 24 Hours 10/19/23 10/20/23 10/21/23 23:59 23:59 23:59 Intake Total 1022.43 / 1022.43 Balance 1022.43 / 1022.43 Lab / Micro Data 10/20/23 20:15 10/20/23 20:15 Labs: Laboratory Results - last 24 hr 10/20/23 20:15: WBC 9.8, RBC 4.22, Hgb 12.6, Hct 37.0, MCV 87.7, MCH 29.9, MCHC 34.1, RDW Std Deviation 40.0, RDW Coeff of Tyson 12.7, Plt Count 338, MPV 10.2, Immature Gran % (Auto) 0.300, Neut % (Auto) 62.5, Lymph % (Auto) 24.7, [place] % (Auto) 9.4, Eos % (Auto) 2.7, Baso % (Auto) 0.4, Absolute Neuts (auto) 6.1, Absolute Lymphs (auto) 2.42, Nucleated RBC % 0, Creatinine 0.67, Estim Creat Clear Calc 153.51, Est GFR (MDRD) Af Amer 129, Est GFR (MDRD) Non-Af 107, Uric Acid 4.0, Total Bilirubin 0.30, AST 15, ALT 9 L, Syphilis Total Ab Non-reactive, Antibody Screen NEGATIVE 10/20/23 21:40: Urine Color Yellow, Urine Clarity Sl. Cloudy, Urine pH 6.5, Ur Specific [place] 1.025, Urine Protein 15 H, Urine Glucose (UA) Normal, Urine Ketones Negative, Urine Occult Blood 25 H, Urine Nitrite Negative, Urine Bilirubin Negative, Urine Urobilinogen Normal, Ur Leukocyte Esterase 25 H, Urine RBC 0-5 SEEN, Urine WBC 0-5 SEEN, Ur Squamous Epith Cells 10-25 SEEN, Urine Bacteria 2+, Urine Mucus 0 SEEN, U Random Total Protein 23.8 H, Urine Creatinine 119.00, Protein/Creatinin Ratio 200, Urine Opiates Screen NEGATIVE, Urine Methadone Screen NEGATIVE, Ur Barbiturates Screen NEGATIVE, Ur Phencyclidine Scrn NEGATIVE, Ur Amphetamines Screen NEGATIVE, MDMA (Ecstasy) Screen NEGATIVE, U Benzodiazepines Scrn NEGATIVE, Urine Cocaine Screen NEGATIVE, U Cannabinoids Screen NEGATIVE, Ur Drug Screen Comment Physical Exam Const alert and no apparent distress General Appearance: cooperative HEENT normocephalic Resp normal respiratory effort Manual OB Exam: dilated 3 cm, effaced 60 and station -3 Extremity no calf tenderness General Extremity: edema Skin no wounds Rashes: No rashes noted Psych activity/motor behavior normal Assessment & Plan (1) Obesity affecting , antepartum: (2) Chronic hypertension: COMMENT: Procardia 30mg PO once daily (3) 37 weeks gestation of :
[2023-10-21] MEDS: LACTATED RINGERS 500 ML 999 ML IV ×2 (18:53→22:38)
[2023-10-21] MEDS: fentaNYL-bupivacaine (epidural) 100 ML BAG EPIDURAL (22:53)
[2023-10-22] VITALS (45 sets, daily range): BP systolic 107–150; BP diastolic 51–85; PULSE 86–118; RESP 15–28; TEMP 36.1–37.2; O2SAT 91–99
[2023-10-22] MEDS: fentaNYL-bupivacaine (epidural) 100 ML BAG EPIDURAL ×2 (03:37→08:51)
[2023-10-22] MEDS: Oxytocin 15 Units/NS 250ml 15 UNITS/250 ML IV.SOLN 12 UNITS IV (03:38)
[2023-10-22] MEDS: Lactated Ringers 1,000 ML 200 ML IV ×2 (04:33→09:58)
[2023-10-22] MEDS: Calcium Carbonate 500 MG Tablet 1000 MG PO (07:28)
--- NOTE | 2023-10-22 09:07 | PCM.PN.OB ---
Subjective Subjective Resting comfortably in bed with epidural Objective Data Objective Data Vital Signs: Vital Signs Temp Pulse Resp BP Pulse Ox 98.4 F 103 H 18 131/75 H 99 10/22/23 08:47 10/22/23 08:46 10/22/23 08:47 10/22/23 08:46 10/22/23 08:47 Weight: 268 lb 12.8 oz Body Mass Index (BMI) 44.7 Intake & Output: Intake and Output for Last 24 Hours 10/20/23 10/21/23 10/22/23 23:59 23:59 23:59 Intake Total 2484.46 / 2484.46 748.74 / 748.74 Output Total 800 / 800 Balance 2484.46 / 2484.46 -51.26 / -51.26 Lab / Micro Data 10/20/23 20:15 10/20/23 20:15 Physical Exam Manual OB Exam: presentation cephalic, dilated 4.5cm, effaced 80%, station -2 and other caput to maternal right side Amniotic Fluid: clear amniotic fluid NST FHR Rate Baby A Baseline: 145 Variability:: Moderate Accelerations:: 15 x 15 Decelerations:: None FHR Category:: Category I Uterine Activity:: every 2-2.5 minutes, strong. MVU 140, inadequate. Assessment & Plan (1) Obesity affecting , antepartum: (2) Chronic hypertension: COMMENT: Procardia 30mg PO once daily (3) Anxiety: (4) Encounter for induction of labor: (5) 37 weeks gestation of : PLAN: Plan 1) Induction of labor, active management. Pitocin at 14mus 2) Cervical change from last exam and position of caput moved. Discussed with patient inadequate contractions but has made cervical change from last exam. She would like to continue labor at this time but ok if section indicated. 3) Category 1 FHT 4) collaborative physician, notified of patient status and of above assessment and plan
[2023-10-22] MEDS: 0.9% Saline Lock 10 ML Syringe IV ×3 (09:58→22:55)
[2023-10-22] MEDS: CHLORHEXIDINE GLUC 2% CLOTH 1 EACH TOWELETTE TOPICAL (10:14)
[2023-10-22] MEDS: NIFEdipine 30 MG Tablet PO (10:14)
[2023-10-22] MEDS: Famotidine 20 MG Tablet PO (11:13)
--- NOTE | 2023-10-22 13:18 | PCM.PN.BLA ---
Progress Note late entry: Patient was examined at bedside at approximately 11:55 AM found to be a tight 4 cm 70-80% effaced with a head -3 caput However head is easily disengaged. Discussed with the patient that she has been 4 cm and on pitocin for over 24 hours with periods of adequate contractions. Discussed failed induction and I suspect CPD due to caput and high station. Pt counseled on primary cs and wishes to proceed at this time. Pre op antibiotics ordered. OR team aware that we will follow cs that is going now. Pitocin to be stopped.
[2023-10-22] MEDS: Acetaminophen 500 MG Tablet PO (13:25)
[2023-10-22] MEDS: Sodium Citrate/Citric Acid 30 ML UDC PO (13:26)
--- NOTE | 2023-10-22 13:31 | EX.PCM.OBRPT ---
Maternal Data Information YANIRA Calculator Estimated Delivery Date Method Current WG Current Estimate 11/09/23 Manual 37w 3d Details Operative Information Date of Procedure: 10/22/23 Pre-Operative Diagnosis: failed induction, suspected CPD, CHTN, obesity in , 37 weeks gestation, AMA Post-Operative Diagnosis: same, live male Indications Narrative: IOL for Chronic HTN on procardia w/ exacerbation, Obesity, AMA- Pt with AROM approximately 21 hours with no cervical change past 4cm on pitocin for 24hours. Classification: CATALINA Procedure Type: low transverse chicken fancier #1: Raul Gomes Type of Anesthesia: Epidural Special Medications: hemoblast Antibiotic Given: Ancef 3 grams IV x1 and Zithromax 500 mg/5 mL X1 Drain: Henriquez to straight drain Estimated Blood Loss: 600 Fluids Replaced: 750 Procedure Start Time: 13:59 Procedure Stop Time: 14:38 Time of Delivery: 14:03 Findings Description of Procedure: After informed consent was obtained the patient was taken the operating room. She was then placed in the supine position. She was prepped and draped in the normal sterile fashion. Epidural Anesthesia was found to be adequate. At this time a Pfannenstiel skin incision was made with a knife was carried down to the underlying layer of the fascia. The fascial incision was then extended laterally using curved Peterson scissor. Attention was then turned to the superior aspect of the fascial edge was grasped with 2 straight [place] clamps tented up and the rectus muscle dissected off bluntly. Attention was then turned to the inferior aspect where again Lupe clamps were placed in the rectus muscles were tented up and the fascia was dissected off sharply using the curved Peterson scissor. Rectus muscles were then in the midline bluntly and peritoneum was entered bluntly. Gentle opposing traction was placed. At this time the vesicouterine peritoneum was identified. Scalpel was used to make a uterine incision in a low transverse fashion. The uterus was then entered bluntly gentle opposing traction was placed to extend this incision. Placenta encountered. 's head was brought to the uterine incision was delivered atraumatically. Delayed cord clamping performed. Cord was clamped and cut was handed to the waiting nursery team. The Placenta was removed from the uterus. The uterus was then removed from the abdominal cavity. The uterus was cleared of all clots and debris using a lap. At this time the uterine incision was reapproximated using #1 Vicryl in a running locked fashion. multiple figure of eight sutures with 1-vicryl. Hemostasis was appreciated. Posterior cul-de-sac was then cleared of all clots and debris. Uterus was placed back in the abdominal cavity. Gutters were cleared of all clots and debris. Uterine incision was reevaluated and noted to be of excellent hemostasis. Hemoblast placed. At this time the peritoneum was grasped with Kellys reapproximated using #2 Vicryl suture in a running fashion. Hemoblast placed on rectus. Fascia was then reapproximated using #1PDS in a running fashion. Subcu layer was irrigated and then reapproximated with #2 0 plain gut suture in an interrupted fashion. Subcu layer was closed using 4-0 Monocryl in a Akash needle in a subcu fashion. Dry sterile dressing was applied. Instrument lap needle count correct ?2. Anticipated normal postoperative course. Presentation: Positive for Vertex Amniotic Membrane Rupture Type: Artificial Amniotic Fluid Description: Clear Placental Delivery Description: Expressed Placenta Disposition: [facility] Cord Vessel Description: 3 Vessels Cord Entanglement: Around neck x 1, loose Nuchal Cord Compression: Without compression A Gender: Male (1 minute): 8 (5 minute): 9 Delayed Cord Clamping: Yes Complications Risks of Surgery Discussed w/Patient: Bleeding, Anesthesia Risks, Infection, Need for Future C-Sections and Injury to surrounding structure(s) including bowel and bladder Complications: none
[2023-10-22] MEDS: Cefazolin 3 GM in 0.9% Normal Saline (100mL Bag) 100 ML IV (13:44)
[2023-10-22] MEDS: Azithromycin 500 MG in Dextrose 5%-Water (250mL Bag) 250 ML 250 MG IV (13:56)
[2023-10-22] MEDS: Oxytocin 15 Units/NS 250ml 15 UNITS/250 ML IV.SOLN 83 UNITS IV (15:00)
[2023-10-22] MEDS: Ketorolac 30 MG/ML Syringe IV ×2 (16:29→22:54)
[2023-10-22] MEDS: Lactated Ringers 1,000 ML 100 ML IV (18:20)
[2023-10-22] MEDS: Acetaminophen 500 MG Tablet 1000 MG PO (20:25)
[2023-10-23] VITALS (11 sets, daily range): BP systolic 116–134; BP diastolic 73–81; PULSE 73–97; RESP 16–18; TEMP 36.2–36.3; O2SAT 96–98
[2023-10-23] MEDS: Acetaminophen 500 MG Tablet 1000 MG PO ×4 (03:20→20:58)
[2023-10-23] MEDS: Enoxaparin 40 MG/0.4 ML Syringe SC ×3 (03:20→21:50)
[2023-10-23] MEDS: Ketorolac 30 MG/ML Syringe IV ×2 (05:00→11:01)
[2023-10-23 06:43] LABS: Hematocrit 32.3 % (37-47); Hemoglobin 10.9 g/dL (12.0-15.0); Mean Corp Hgb Conc 33.7 g/dL (32-36); Mean Corpuscular Hgb 29.9 pg (27.0-32.0); Mean Corpuscular Volume 88.7 fL (81-99); Mean Platelet Vol. 10.5 fl (6.2-12.0); Platelet Count 280 K/mm3 (150-450); RBC Distribution Width CV 12.8 % (11.6-14.6); RBC Distribution Width SD 41.6 fl (35.1-43.9); Red Blood Count 3.64 M/mm3 (4.2-5.4)
--- NOTE | 2023-10-23 09:19 | PCM.PN.CNM ---
Subjective Subjective Patient seen at bedside. Resting comfortably. Ambulating and voiding without difficulty. Both breast and formula feeding. Pain controlled. Objective Data Objective Data Vital Signs: Vital Signs Temp Pulse Resp BP Pulse Ox O2 Del Method 97.2 F L 81 16 125/76 H 97 Room Air 10/23/23 08:50 10/23/23 08:50 10/23/23 08:50 10/23/23 08:50 10/23/23 08:50 10/23/23 08:50 Oxygen Delivery Method Room Air Weight: 268 lb 12.8 oz Body Mass Index (BMI) 44.7 Intake & Output: Intake and Output for Last 24 Hours 10/21/23 10/22/23 10/23/23 23:59 23:59 23:59 Intake Total 2484.46 / 2484.46 3578.80 / 3578.80 Output Total 3825 / 3825 800 / 800 Balance 2484.46 / 2484.46 -246.20 / -246.20 -800 / -800 Lab / Micro Data 10/23/23 05:10 10/20/23 20:15 Labs: Laboratory Results - last 24 hr 10/23/23 05:10: WBC 11.0, RBC 3.64 L, Hgb 10.9 L, Hct 32.3 L, MCV 88.7, MCH 29.9, MCHC 33.7, RDW Std Deviation 41.6, RDW Coeff of Tyson 12.8, Plt Count 280, MPV 10.5 ROS Eyes Eyes: Denies blurry vision, change in vision or spots in vision ENT HEENT: Denies dizziness or headache(s) Cardiovascular Cardiovascular: Denies abdominal pain, chest pain or dyspnea Respiratory/Chest Respiratory/Chest: Denies cough, dyspnea, shortness of breath at rest or shortness of breath with exertion Gastrointestinal Gastrointestinal: Denies abdominal pain, diarrhea or vomiting Genitourinary Genitourinary: Denies change in urinary stream, difficulty urinating or dysuria Musculoskeletal Musculoskeletal: Reports none Integumentary Integumentary: Denies rash Neurologic Neurologic: Denies dizziness, headache(s), memory loss or weakness Physical Exam Narrative Dressing is dry and intact Const alert and no apparent distress General Appearance: cooperative and comfortable Exam Limitations: no limitations HEENT normocephalic Eyes General Eye: normal appearance of both eyes Neck full ROM General: normal visual inspection Chest Chest: symmetrical chest wall rise Resp normal respiratory effort and normal air movement Effort and Inspection: symmetric chest movement Auscultation: clear to auscultation bilaterally Cardio regular rate and regular rhythm GI normal to inspection, nondistended, normoactive bowel sounds Back/Spine normal ROM Extremity full ROM and no calf tenderness General Extremity: normal exam except as noted Skin no rashes or lesions noted Neuro CN's II-XII intact bilaterally Psych mental status grossly normal Assessment & Plan (1) Chronic hypertension: COMMENT: Procardia 30mg PO once daily (2) Anxiety: (3) Depression: (4) delivery delivered: PLAN: Plan POD 1 Primary section pain control BP stable Increase ambulating today Anticipate discharge home tomorrow
[2023-10-23] MEDS: NIFEdipine 30 MG Tablet PO (09:57)
[2023-10-23] MEDS: Senna/Docusate Sodium 1 Tablet PO (09:59)
[2023-10-23] MEDS: Famotidine 20 MG Tablet PO (09:59)
[2023-10-23] MEDS: Ibuprofen 600 MG Tablet PO ×2 (15:32→20:57)
[2023-10-23] MEDS: 0.9% Saline Lock 10 ML Syringe IV (20:57)
[2023-10-24 01:45] VITALS: BP 121/72; PULSE 89; RESP 16; TEMP 36.3; O2SAT 98
[2023-10-24] MEDS: Ibuprofen 600 MG Tablet PO ×2 (03:26→09:50)
[2023-10-24] MEDS: Acetaminophen 500 MG Tablet 1000 MG PO ×2 (03:26→09:49)
--- NOTE | 2023-10-24 08:04 | PCM.PN.OB ---
Subjective Subjective Denies complaints Objective Data Objective Data Vital Signs: Vital Signs Temp Pulse Resp BP Pulse Ox O2 Del Method 97.3 F L 89 16 121/72 H 98 Room Air 10/24/23 01:45 10/24/23 01:45 10/24/23 01:45 10/24/23 01:45 10/24/23 01:45 10/24/23 01:45 Oxygen Delivery Method Room Air Weight: 268 lb 12.8 oz Body Mass Index (BMI) 44.7 Intake & Output: Intake and Output for Last 24 Hours 10/22/23 10/23/23 10/24/23 23:59 23:59 23:59 Intake Total 3578.80 / 3578.80 Output Total 3825 / 3825 800 / 800 Balance -246.20 / -246.20 -800 / -800 Lab / Micro Data 10/23/23 05:10 10/20/23 20:15 Physical Exam Const alert, oriented x3 and no apparent distress HEENT normocephalic GI soft to palpation, non-tender and non-distended GI Narrative: fundus firm, mid & below umbilicus Incision - bandage c/d/i scant abdominal erythema c/w irritation from drape Extremity normal to inspection and no calf tenderness Assessment & Plan (1) Chronic hypertension: COMMENT: POD#2 (2) delivery delivered: PLAN: Plan D/c home Continue Procardia
--- NOTE | 2023-10-24 08:05 | PCM.DC.SUM ---
Providers Date of Admission: 10/20/23 Date of Discharge: 10/24/23 Primary Care Physician: No Primary Care Phys Reason For Visit: INDUCTION/PRIM CSECTION DELIVERY Diagnosis Discharge Diagnosis (1) Chronic hypertension: Status: Chronic Code(s): I10 - Essential (primary) hypertension (2) delivery delivered: Status: Acute Code(s): O82 - Encounter for delivery without indication Plan D/c home Continue Procardia Medications at Discharge Home Medications famotidine 20 mg tablet (Acid Controller) 20 mg PO DAILY heartburn 07/13/23 vit 122-ferrous fumarate 27 mg iron-folic acid 800 mcg tablet ( Multi) tab PO DAILY 07/13/23 nifedipine 30 mg tablet,extended release 24 hr (Procardia XL) 30 mg PO DAILY hypertension 10/20/23 acetaminophen 500 mg tablet 1,000 mg (2 x 500 mg) PO Q6H #0 tabs 10/24/23 ibuprofen 600 mg tablet 600 mg PO Q6H #0 tabs 10/24/23 Hospital Course Operations section Summary of Care Provided Minutes Spent on Discharge: 20 Hospital Course: Patient admitted for induction and proceeded to have a . Weight / BMI Weight Weight: 268 lb 12.8 oz Body Mass Index (BMI) 44.7 ABG / Lab / Microbiology Data 10/23/23 05:10 10/20/23 20:15 D/C Instructions Discharge Diet: No restrictions May resume sexual activity in: 6 weeks Weight Bearing Status: Weight bearing as tolerated Call your doctor if your incision/area has: Continuous Slow Oozing, Sudden Increased Bleeding, Increased Pain/ Swelling, Increased Redness, Foul Smelling Discharge and Swelling at the incision site Call your doctor if you observe: Fever of 101 or Higher, Coldness, Increased Pain, Change in Color, Inability to urinate, Inability to have a bowel movement, Using more than 1 pad per hour, Shortness of breath, Dizziness, Fainting spells, Chest pain, Increased palpitations (irregular heartbeat), Calf discomfort and Uncontrolled pain Suture Line Care: Avoid Pulling/Pushing and Avoid Pinching/Bending Remove Dressing in: 1 week Cleanse incision/area with: Soap & Water Please Follow Up With: Nuris Retana MD When: Follow up in 1 and 6 weeks for visits. Meaningful Use Info Meaningful Use Meaningful Use Diagnoses (Choose all that apply): None applicable Ischemic Stroke Statin Dosing Therapy Reference: STATIN DOSE THERAPY REFERENCE: * Patients > 75 years receive moderate or high dose statin therapy. * Patients 75 years or YOUNGER should receive HIGH intensity statin dose unless contraindicated. You will be required to document reason for non-treatment if statin daily dose does not meet guidelines. HIGH DOSE STATIN THERAPY DAILY Atorvastatin > than or = to 40 mg Rosuvastatin > than or = to 20 mg Amlodipine + Atorvastatin > than or = to 2.5/40 mg Ezetimibe + Simvastatin 10/80 mg Simvastatin 80mg Discharge Plan Admission Admit Date/Time: 10/20/23 19:18 Primary Reason for Your Visit: section Attending Provider: Nuris Retana Primary Care Provider: Care Physician,No Primary Consulting Providers: Kavita Spence Discharge Orders/Prescriptions Prescriptions: New acetaminophen 500 mg Tablet 1,000 mg PO Q6H Qty: 0 0RF ibuprofen 600 mg Tablet 600 mg PO Q6H Qty: 0 0RF Continued Multi 27-800 mg-mcg tablet PO DAILY famotidine [Acid Controller] 20 mg tablet 20 mg PO DAILY nifedipine [Procardia XL] 30 mg tablet extended release 24hr 30 mg PO DAILY Discontinued aspirin [Adult Aspirin Regimen] 81 mg tablet,delayed release (DR/EC) 162 mg PO DAILY Referrals / Follow Up: Care Physician,No Primary [Primary Care Provider] - Disposition Disposition (needs filled in before D/C Order can be placed): Home, Self Care
[2023-10-24 09:00] VITALS: BP 135/93; PULSE 73; RESP 18; TEMP 36.5; O2SAT 99
[2023-10-24] MEDS: Enoxaparin 40 MG/0.4 ML Syringe SC (09:48)
[2023-10-24] MEDS: Famotidine 20 MG Tablet PO (09:49)
[2023-10-24] MEDS: NIFEdipine 30 MG Tablet PO (09:49)
[2023-10-24] MEDS: Senna/Docusate Sodium 1 Tablet PO (09:50)
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
== END 2023-10-24 12:05 | disposition home or self-care (01) | DRG 787 ==
PROVIDERS: Advanced Practice Midwife; Admitting Provider Obstetrics & Gynecology; Referring Provider Obstetrics & Gynecology; Visit Provider Obstetrics & Gynecology
DX: O33.9 Maternal care for disproportion, unspecified (principal); O10.02 Pre-existing essential hypertension complicating childbirth; E66.01 Morbid (severe) obesity due to excess calories; O61.9 Failed induction of labor, unspecified; O69.81X0 Labor and delivery complicated by cord around neck, without compression, not applicable or unspecified; O99.214 Obesity complicating childbirth; Z3A.37 37 weeks gestation of pregnancy; Z37.0 Single live birth; Z79.82 Long term (current) use of aspirin; Z87.891 Personal history of nicotine dependence
CPT/HCPCS: 59025; 59050; 80307; 81001; 82247; 82565; 82570; 84156; 84450; 84460; 84550; 85025; 85027; 86780; 86850; 86900; 86901; 99221; A4216; G0378; J2405